=== PATIENT | male | born 1955 | race Caucasian/White ===

== ENCOUNTER 2020-04-29 09:33 | Outpatient (CLI) | payer BC, SELFPAY ==
[2020-04-29 10:05] LABS: Alanine Aminotransferase 34 U/L (4-50); Albumin Level 4.3 g/dL (3.5-5.1); Alkaline Phosphatase 87 U/L (38-126); Anion Gap 4 mmol/L (8-16); Aspartate Amino Transferase 31 U/L (17-59); Bilirubin,Total 0.6 mg/dL (0.2-1.3); Blood Urea Nitrogen 20 mg/dL (9-20); Calcium 9.1 mg/dL (8.4-10.2); Carbon Dioxide 28 mmol/L (22-30); Chloride 106 mmol/L (98-107); Cholesterol 220 mg/dL (0-200); Estimated Glomerular Filt Rate > 60; Glucose 94 mg/dL (75-110); HDL Direct 40 mg/dL; Potassium 4.2 mmol/L (3.4-5.0); Sodium 138 mmol/L (137-145); Triglycerides 232 mg/dL (<150)
[2020-04-29 10:16] LABS: LDL Cholesterol Direct 139 mg/dL
[2020-04-29 10:34] LABS: Prostate Specific Antigen 0.8 ng/mL (< OR = 4.0)
== END 2020-04-29 09:34 | disposition home or self-care (01) ==
PROVIDERS: PCP Emergency Medicine; Visit Provider Emergency Medicine
DX: E78.5 Hyperlipidemia, unspecified (principal); Z12.5 Encounter for screening for malignant neoplasm of prostate
CPT/HCPCS: 36415; 80053; 80061; 84153

== ENCOUNTER 2020-10-14 13:02 | Outpatient (CLI) | payer MEDICARE, SELFPAY | END 2020-10-14 13:03 | disposition home or self-care (01) | LOC: ANHCOVIDVC 13:02 | PROVIDERS: PCP Emergency Medicine | DX: Z23 Encounter for immunization (principal) | CPT/HCPCS: 0001A; 91300 ==

== ENCOUNTER 2020-10-28 10:56 | Outpatient (CLI) | payer MEDICARE, SELFPAY ==
[2020-10-28 11:39] LABS: Alanine Aminotransferase 41 U/L (4-50); Albumin Level 4.2 g/dL (3.5-5.1); Alkaline Phosphatase 84 U/L (38-126); Anion Gap 5 mmol/L (8-16); Aspartate Amino Transferase 35 U/L (17-59); Bilirubin,Total 0.5 mg/dL (0.2-1.3); Blood Urea Nitrogen 19 mg/dL (9-20); Carbon Dioxide 30 mmol/L (22-30); Chloride 104 mmol/L (98-107); Cholesterol 232 mg/dL (0-200); Estimated Glomerular Filt Rate > 60; Glucose 90 mg/dL (75-110); HDL Direct 46 mg/dL; Potassium 4.3 mmol/L (3.4-5.0); Sodium 139 mmol/L (137-145); Triglycerides 199 mg/dL (<150)
[2020-10-28 11:49] LABS: LDL Cholesterol Direct 144 mg/dL
== END 2020-10-28 10:57 | disposition home or self-care (01) ==
LOC: ANHLAB 11:01
PROVIDERS: PCP Emergency Medicine; Visit Provider Emergency Medicine
DX: E78.5 Hyperlipidemia, unspecified (principal)
CPT/HCPCS: 36415; 80053; 80061

== ENCOUNTER 2020-11-04 09:33 | Outpatient (CLI) | payer MEDICARE, SELFPAY | END 2020-11-04 09:34 | disposition home or self-care (01) | LOC: ANHCOVIDVC 09:33 | PROVIDERS: PCP Emergency Medicine | DX: Z23 Encounter for immunization (principal) | CPT/HCPCS: 0002A; 91300 ==

== ENCOUNTER 2020-11-06 13:37 | Outpatient (CLI) | payer MEDICARE, SELFPAY ==
--- NOTE | ~2020-11-06 | XR_ITS ---
EXAMINATION: XR hip RT min 2V DATE: 11/06/2020 13:52 INDICATION: Right hip pain. TECHNIQUE: 2 views of right hip were obtained. COMPARISON: CT abdomen and pelvis 04/04/2014 FINDINGS: Bone alignment is normal. No fracture. There is chronic flattening of superior aspect of he ad of right femur, consistent with osteonecrosis. There is moderate right hip osteoarthritis. There i s mild lumbar spondylosis. IMPRESSION: 1. Chronic flattening of superior aspect of head of right femur, consistent with osteonecrosis. 2. Moderate right hip osteoarthritis. Reviewed, dictated and finalized at location A. IMPRESSION: 1. Chronic flattening of superior aspect of head of right femur, consistent wit h osteonecrosis. 2. Moderate right hip osteoarthritis.
== END 2020-11-06 13:38 | disposition home or self-care (01) ==
LOC: ANHIMG 13:40
PROVIDERS: PCP Emergency Medicine; Visit Provider Emergency Medicine
DX: M25.559 Pain in unspecified hip (principal); M16.11 Unilateral primary osteoarthritis, right hip; M89.9 Disorder of bone, unspecified
CPT/HCPCS: 73502

== ENCOUNTER 2021-04-27 11:53 | Outpatient (CLI) | payer MEDICARE, SELFPAY ==
[2021-04-27 12:21] LABS: Alanine Aminotransferase 44 U/L (4-50); Albumin Level 4.4 g/dL (3.5-5.1); Alkaline Phosphatase 83 U/L (38-126); Anion Gap 7 mmol/L (8-16); Aspartate Amino Transferase 37 U/L (17-59); Bilirubin,Total 0.6 mg/dL (0.2-1.3); Blood Urea Nitrogen 20 mg/dL (9-20); Carbon Dioxide 29 mmol/L (22-30); Chloride 103 mmol/L (98-107); Cholesterol 210 mg/dL (0-200); Estimated Glomerular Filt Rate > 60; Glucose 91 mg/dL (65-110); HDL Direct 41 mg/dL; Potassium 4.3 mmol/L (3.4-5.0); Sodium 139 mmol/L (137-145); Triglycerides 241 mg/dL (<150)
[2021-04-27 12:32] LABS: LDL Cholesterol Direct 114 mg/dL
== END 2021-04-27 11:54 | disposition home or self-care (01) ==
LOC: ANHLAB 11:55
PROVIDERS: PCP Emergency Medicine; Visit Provider Emergency Medicine
DX: E78.2 Mixed hyperlipidemia (principal); I10 Essential (primary) hypertension
CPT/HCPCS: 36415; 80053; 80061

== ENCOUNTER 2021-05-08 12:27 | Outpatient (CLI) | payer MEDICARE, SELFPAY ==
[2021-05-08 15:52] LABS: Prostate Specific Antigen 0.7 ng/mL (< OR = 4.0)
== END 2021-05-08 12:28 | disposition home or self-care (01) ==
PROVIDERS: PCP Emergency Medicine; Visit Provider Emergency Medicine
DX: Z12.5 Encounter for screening for malignant neoplasm of prostate (principal)
CPT/HCPCS: 36415; 84153; G0103

== ENCOUNTER 2021-10-29 09:42 | Outpatient (CLI) | payer MEDICARE, SELFPAY ==
[2021-10-29 10:19] LABS: Alanine Aminotransferase 61 U/L (4-50); Albumin Level 4.4 g/dL (3.5-5.1); Alkaline Phosphatase 90 U/L (38-126); Anion Gap 6 mmol/L (8-16); Aspartate Amino Transferase 44 U/L (17-59); Bilirubin,Total 0.6 mg/dL (0.2-1.3); Blood Urea Nitrogen 21 mg/dL (9-20); Calcium 8.7 mg/dL (8.4-10.2); Carbon Dioxide 29 mmol/L (22-30); Chloride 103 mmol/L (98-107); Cholesterol 239 mg/dL (0-200); Estimated Glomerular Filt Rate 55; Glucose 96 mg/dL (65-110); HDL Direct 37 mg/dL; Potassium 4.4 mmol/L (3.4-5.0); Sodium 138 mmol/L (137-145); Triglycerides 265 mg/dL (<150)
[2021-10-29 10:30] LABS: LDL Cholesterol Direct 149 mg/dL
== END 2021-10-29 09:43 | disposition home or self-care (01) ==
PROVIDERS: PCP Emergency Medicine; Visit Provider Emergency Medicine
DX: E78.2 Mixed hyperlipidemia (principal)
CPT/HCPCS: 36415; 80053; 80061

== ENCOUNTER 2021-11-09 15:11 | Outpatient (CLI) | payer MEDICARE, SELFPAY ==
--- NOTE | ~2021-11-09 | CT_ITS ---
EXAMINATION: CT lung screening DATE: 11/09/2021 15:30 INDICATION: Former Smoker TECHNIQUE: Computed tomography (CT) of the chest was performed without intravenous contrast. Addition al 3D reconstructions utilizing coronal maximum intensity projection (MIP) were performed. Automated exposure control and iterative reconstruction technique were employed. The dose-length product was 19 9.18 mGy-cm. COMPARISON: 04/03/2014 FINDINGS: Mild emphysema. Unchanged 4 mm groundglass nodule at the posterior right apex. No other suspicious pu lmonary nodules, or pneumonia, pulmonary edema or pleural effusion. Heart size is normal. Atheroscler otic coronary artery calcific location. No pericardial effusion. Aortic valve calcification. Thoracic aorta is normal in caliber. No pathologically enlarged thoracic lymphadenopathy. Diffuse hepatic drea atosis with focal sparing along the gallbladder fossa. There are also multiple well-defined low-atten uation hepatic cysts measuring up to 4.3 cm. Gallbladder is not visualized and likely surgically abse nt. The left adrenal gland has also been resected with surgical clip at the adrenal fossa. Partially visualized at least 1.8 cm cyst at the upper pole of the right kidney. Chronic minimal to mild anteri or wedging of a few mid to lower thoracic vertebral bodies. IMPRESSION: 1. Lung-RADS category 2: Benign appearance or behavior. Continue annual screening with noncontrast lo w-dose chest CT in 12 months. 2. Mild emphysema. Reviewed, dictated and finalized at location B. IMPRESSION: 1. Lung-RADS category 2: Benign appearance or behavior. Continue annual screeni ng with noncontrast low-dose chest CT in 12 months. 2. Mild emphysema.
== END 2021-11-09 15:12 | disposition home or self-care (01) ==
PROVIDERS: PCP Emergency Medicine; Visit Provider Emergency Medicine
DX: Z12.2 Encounter for screening for malignant neoplasm of respiratory organs (principal); Z87.891 Personal history of nicotine dependence; J43.9 Emphysema, unspecified
CPT/HCPCS: 71271

== ENCOUNTER 2021-12-27 01:20 | Day surgery (SDC) | payer MEDICARE, SELFPAY ==
--- NOTE | 2021-12-27 07:50 | P.PNAN_ITS ---
Anes - Initial Pre Proc Eval Procedure: Operation Date: 12/27/21 13:00 Proposed Procedures p Screening Colonoscopy - Jean Singh MD Date/Time: 12/27/21 07:50 Surgeon: Jean Singh MD Pre Op Diagnosis: hx of colon polyps Patient Data Age: 66 Gender: M Height: Weight: 99 kg Allergies Allergy/AdvReac Type Severity Reaction Status Date / Time No Known Allergies Allergy Verified 12/27/21 10:34 Home Medications Medication Instructions Recorded Confirmed Type fenofibrate nanocrystallized 48 mg See Rx Instructions .ROUTE 06/25/21 12/14/21 Rx tablet .COMPLEX #90 tablet prazosin 1 mg capsule See Rx Instructions .ROUTE 06/25/21 12/14/21 Rx .COMPLEX #180 cap losartan 100 mg tablet 100 mg PO DAILY #90 tablet 10/04/21 12/14/21 Rx naproxen See Rx Instructions .ROUTE 12/14/21 12/14/21 History .COMPLEX PRN amlodipine 5 mg PO DAILY 12/23/21 12/23/21 History Patient hx anesthesia problems: none Family hx anesthesia problems: none Results Review: All pre-operative results and documents have been reviewed as part of the pre-operative evaluation. [facility] Past Medical History Medical History (Updated 12/27/21 @ 07:50 by Pérez Reeves DO) HLD (hyperlipidemia) Hypertension Surgical History Surgical History (Updated 12/27/21 @ 07:50 by Pérez Reeves DO) History of appendectomy Family History Family History Other Diabetes mellitus Heart disease High cholesterol Hypertension Social History Social History Smoking packs per day: 1.5 Smoking cigarettes per day: 30.0 Years smoked: 30 Smoking pack-years: 45.00 Smoking status: Former smoker Tobacco type: cigarettes Smoking end date: 08/07/14 Alcohol intake: current Alcohol use details: 2 drinks/year Substance use: never Living arrangements: with family Gender identity (if verbalized by the patient): Male Spiritual care concerns: No Anes - Eval Final PreProcedure Day of Procedure 12/27/21 07:50 Patient weight: normal Heart: regular rate and rhythm Lungs: clear to auscultation and normal air movement Airway: Mallampati scale class II Neurological: alert and oriented Last oral intake: >/= 8 hours ASA classification: III Emergent: no Anesthetic plan: proceed Anesthesia type and monitoring: general GIVS and standard monitoring Results Review: All pre-operative results and documents have been reviewed as part of the pre-operative evaluation. Informed Consent: The patient's anesthetic plan and its attendant risks and benefits were discussed with the patient/family/POA. Questions were solicited and answers provided to the satisfaction of the patient/family/POA.
[2021-12-27 10:35] VITALS: BP 124/96; PULSE 50; TEMP 36.2; O2SAT 97
[2021-12-27] MEDS: LACTATED RINGERS 1,000 ML 150 ML IV CONT (10:53)
--- NOTE | 2021-12-27 11:08 | PM.HPGS ---
History of Present Illness History of Present Illness Consent: Risks, benefits, and alternatives have been discussed and questions answered. Patient agrees to proceed with procedure. Chief complaint: hx of colon polyps Narrative: Brody Briones is a 66 year old male with colon polyp in 2017 Review of Systems Constitutional: Constitutional: Denies headache(s) and Denies weakness Eyes: Eyes: Denies blurry vision ENT: Reports Normal hearing present, Denies headache(s) and Denies neck pain Cardiovascular: Cardiovascular: Denies chest pain and Denies dyspnea Respiratory: Respiratory: Denies dyspnea Gastrointestinal: Gastrointestinal: Reports no additional gastrointestinal complaints Genitourinary: Genitourinary: Denies dysuria Musculoskeletal: Musculoskeletal: Denies neck pain Integumentary/Breasts: Skin/Breast: Denies dry skin Neurologic: Reports Normal hearing present, Denies headache(s) and Denies weakness Psychiatric: Psychiatric: Denies anxiety Endocrine: Endocrine: Denies change in body appearance Hematologic/Lymphatic: Hematologic/Lymphatic: Denies easy bleeding Allergic/Immunologic: Allergic/Immunologic: Denies urticaria PMFSH Past Medical History Medical History (Updated 12/27/21 @ 07:50 by Pérez Reeves DO) HLD (hyperlipidemia) Hypertension Surgical History Surgical History (Updated 12/27/21 @ 07:50 by Pérez Reeves DO) History of appendectomy Family History Family History Other Diabetes mellitus Heart disease High cholesterol Hypertension Social History Social History Smoking packs per day: 1.5 Smoking cigarettes per day: 30.0 Years smoked: 30 Smoking pack-years: 45.00 Smoking status: Former smoker Tobacco type: cigarettes Smoking end date: 08/07/14 Alcohol intake: current Alcohol use details: 2 drinks/year Substance use: never Living arrangements: with family Gender identity (if verbalized by the patient): Male Spiritual care concerns: No Meds Home Medications and Allergies Home Medications Medication Instructions Recorded Confirmed Type fenofibrate nanocrystallized 48 mg See Rx Instructions .ROUTE 06/25/21 12/14/21 Rx tablet .COMPLEX #90 tablet prazosin 1 mg capsule See Rx Instructions .ROUTE 06/25/21 12/14/21 Rx .COMPLEX #180 cap losartan 100 mg tablet 100 mg PO DAILY #90 tablet 10/04/21 12/14/21 Rx naproxen See Rx Instructions .ROUTE 12/14/21 12/14/21 History .COMPLEX PRN amlodipine 5 mg PO DAILY 12/23/21 12/23/21 History Allergies Allergy/AdvReac Type Severity Reaction Status Date / Time No Known Allergies Allergy Verified 12/27/21 10:34 Vital Signs Vital Signs - 24 hr 12/27/21 10:35 Temperature 97.1 F L Pulse Rate 50 L Blood Pressure 124/96 H Pulse Oximetry 97 Exam Const: General: comfortable and no acute distress HENMT: General nose exam: Normal nares present Eyes: General: appearance normal, both eyes and all related structures Neck: Neck: no JVD Resp: Auscultation: clear to auscultation bilaterally Cardio: Rate: regular rate Rhythm: regular rhythm GI: Inspection: non-distended GI Palp: Yes Soft to palpation Skin: General skin exam: normal color Neuro: General: gait normal Speech: normal speech Extrem: General: normal to inspection Psych: Mental Status: mental status grossly normal Assessment and Plan Assessment and plan (1) Colon cancer screening: Code(s): Z12.11 - Encounter for screening for malignant neoplasm of colon Status: Acute Assessment and Plan: colonoscopy
[2021-12-27 11:24] VITALS: BP 99/60; PULSE 79; RESP 16; O2SAT 95
[2021-12-27 11:34] VITALS: BP 106/76; PULSE 73; RESP 16; O2SAT 92
[2021-12-27 11:44] VITALS: BP 124/88; PULSE 77; RESP 16; O2SAT 94
== END 2021-12-27 11:56 | disposition home or self-care (01) ==
PROVIDERS: PCP Emergency Medicine; Visit Provider Internal Medicine Gastroenterology
PROC: 0DJD8ZZ Inspection of Lower Intestinal Tract, Via Natural or Artificial Opening Endoscopic (ICD-10-PCS; CPT 45378; principal; 2021-12-27 13:00)
DX: Z12.11 Encounter for screening for malignant neoplasm of colon (principal); D12.0 Benign neoplasm of cecum; K57.30 Diverticulosis of large intestine without perforation or abscess without bleeding; I10 Essential (primary) hypertension; E78.5 Hyperlipidemia, unspecified; Z87.891 Personal history of nicotine dependence
CPT/HCPCS: 45380; 88305; J7120

== ENCOUNTER 2022-05-07 09:23 | Outpatient (CLI) | payer MEDICARE, SELFPAY ==
[2022-05-07 09:53] LABS: Cholesterol 215 mg/dL (0-200); HDL Direct 41 mg/dL; Triglycerides 199 mg/dL (<150)
[2022-05-07 10:04] LABS: LDL Cholesterol Direct 144 mg/dL
== END 2022-05-07 09:24 | disposition home or self-care (01) ==
LOC: ANHLAB 09:27
PROVIDERS: PCP Emergency Medicine; Visit Provider Emergency Medicine
DX: E78.2 Mixed hyperlipidemia (principal)
CPT/HCPCS: 36415; 80061

== ENCOUNTER 2022-05-14 09:55 | Outpatient (CLI) | payer MEDICARE, SELFPAY ==
[2022-05-14 11:04] LABS: Prostate Specific Antigen 0.8 ng/mL (< OR = 4.0)
== END 2022-05-14 09:56 | disposition home or self-care (01) ==
PROVIDERS: PCP Emergency Medicine; Visit Provider Emergency Medicine
DX: Z12.5 Encounter for screening for malignant neoplasm of prostate (principal)
CPT/HCPCS: 36415; 84153; G0103

== ENCOUNTER 2022-11-04 10:42 | Outpatient (CLI) | payer MEDICARE, SELFPAY ==
[2022-11-04 11:19] LABS: Alanine Aminotransferase 39 U/L (6-50); Albumin Level 4.2 g/dL (3.5-5.1); Alkaline Phosphatase 86 U/L (38-126); Anion Gap 4 mmol/L (8-16); Aspartate Amino Transferase 33 U/L (17-59); Bilirubin,Total 0.8 mg/dL (0.2-1.3); Blood Urea Nitrogen 23 mg/dL (9-20); Calcium 8.6 mg/dL (8.4-10.2); Carbon Dioxide 30 mmol/L (22-30); Chloride 102 mmol/L (98-107); Cholesterol 216 mg/dL (0-200); Estimated Glomerular Filt Rate 51; Glucose 97 mg/dL (65-110); HDL Direct 38 mg/dL; Potassium 4.3 mmol/L (3.4-5.0); Sodium 136 mmol/L (137-145); Triglycerides 178 mg/dL (<150)
[2022-11-04 11:30] LABS: LDL Cholesterol Direct 141 mg/dL
== END 2022-11-04 10:43 | disposition home or self-care (01) ==
PROVIDERS: PCP Emergency Medicine; Visit Provider Emergency Medicine
DX: E78.5 Hyperlipidemia, unspecified (principal)
CPT/HCPCS: 36415; 80053; 80061

== ENCOUNTER 2023-05-09 09:30 | Outpatient (CLI) | payer MEDICARE, SELFPAY ==
[2023-05-09 10:26] LABS: Alanine Aminotransferase 51 U/L (6-50); Albumin Level 4.2 g/dL (3.5-5.1); Alkaline Phosphatase 82 U/L (38-126); Anion Gap 7 mmol/L (8-16); Aspartate Amino Transferase 39 U/L (17-59); Bilirubin,Total 0.6 mg/dL (0.2-1.3); Blood Urea Nitrogen 24 mg/dL (9-20); Calcium 8.7 mg/dL (8.4-10.2); Carbon Dioxide 30 mmol/L (22-30); Chloride 101 mmol/L (98-107); Cholesterol 225 mg/dL (0-200); Estimated Glomerular Filt Rate 60; Glucose 92 mg/dL (65-110); HDL Direct 44 mg/dL; Potassium 4.4 mmol/L (3.4-5.0); Sodium 138 mmol/L (137-145); Triglycerides 281 mg/dL (<150)
[2023-05-09 10:43] LABS: LDL Cholesterol Direct 128 mg/dL
[2023-05-12 22:59] LABS: Vitamin D 1,25 (OH)2 Total 39 pg/mL (18-72); Vitamin D2 1,25 (OH)2 <8 pg/mL; Vitamin D3 1,25 (OH)2 39 pg/mL
== END 2023-05-09 09:31 | disposition home or self-care (01) ==
PROVIDERS: PCP Emergency Medicine; Visit Provider Emergency Medicine
DX: E78.5 Hyperlipidemia, unspecified (principal); I10 Essential (primary) hypertension; E55.9 Vitamin D deficiency, unspecified
CPT/HCPCS: 36415; 80053; 80061; 82652

== ENCOUNTER 2023-06-05 11:39 | Outpatient (CLI) | payer MEDICARE, SELFPAY ==
[2023-06-05 13:07] LABS: Prostate Specific Antigen 0.8 ng/mL (< OR = 4.0)
== END 2023-06-05 11:40 | disposition home or self-care (01) ==
PROVIDERS: PCP Emergency Medicine; Visit Provider Emergency Medicine
DX: Z12.5 Encounter for screening for malignant neoplasm of prostate (principal)
CPT/HCPCS: 36415; 84153; G0103

== ENCOUNTER 2023-11-09 09:40 | Outpatient (CLI) | payer MEDICARE, SELFPAY ==
[2023-11-09 11:03] LABS: Alanine Aminotransferase 43 U/L (6-50); Albumin Level 4.5 g/dL (3.5-5.1); Alkaline Phosphatase 86 U/L (38-126); Anion Gap 4 mmol/L (4-12); Aspartate Amino Transferase 38 U/L (17-59); Bilirubin,Total 0.6 mg/dL (0.2-1.3); Blood Urea Nitrogen 27 mg/dL (9-20); Calcium 9.7 mg/dL (8.4-10.2); Carbon Dioxide 31 mmol/L (22-30); Chloride 103 mmol/L (98-107); Cholesterol 225 mg/dL (0-200); Estimated Glomerular Filt Rate 50; Glucose 100 mg/dL (65-110); HDL Direct 39 mg/dL; Potassium 4.4 mmol/L (3.4-5.0); Sodium 138 mmol/L (137-145); Triglycerides 247 mg/dL (<150)
[2023-11-09 11:27] LABS: Vitamin D 25 Hydroxy 29.7 ng/mL
[2023-11-09 21:17] LABS: LDL Cholesterol Direct 149 mg/dL
== END 2023-11-09 09:41 | disposition home or self-care (01) ==
PROVIDERS: PCP Emergency Medicine; Visit Provider Emergency Medicine
DX: E78.2 Mixed hyperlipidemia (principal); E55.9 Vitamin D deficiency, unspecified
CPT/HCPCS: 36415; 80053; 80061; 82306

== ENCOUNTER 2024-05-07 09:46 | Outpatient (CLI) | payer MEDICARE, SELFPAY ==
[2024-05-07 10:58] LABS: Alanine Aminotransferase 38 U/L (6-50); Albumin Level 4.4 g/dL (3.5-5.1); Alkaline Phosphatase 76 U/L (38-126); Anion Gap 7 mmol/L (4-12); Aspartate Amino Transferase 31 U/L (17-59); Bilirubin,Total 0.6 mg/dL (0.2-1.3); Blood Urea Nitrogen 30 mg/dL (9-20); Carbon Dioxide 27 mmol/L (22-30); Chloride 104 mmol/L (98-107); Cholesterol 223 mg/dL (0-200); Estimated Glomerular Filt Rate 55; Glucose 97 mg/dL (65-110); HDL Direct 46 mg/dL; Potassium 4.3 mmol/L (3.4-5.0); Sodium 138 mmol/L (137-145); Triglycerides 190 mg/dL (<150)
[2024-05-07 11:09] LABS: LDL Cholesterol Direct 137 mg/dL
[2024-05-07 11:15] LABS: Vitamin D 25 Hydroxy 20.5 ng/mL
[2024-05-07 11:25] LABS: Prostate Specific Antigen 0.7 ng/mL (< OR = 4.0)
== END 2024-05-07 09:47 | disposition home or self-care (01) ==
PROVIDERS: PCP Emergency Medicine; Visit Provider Emergency Medicine
DX: E78.5 Hyperlipidemia, unspecified (principal); Z12.5 Encounter for screening for malignant neoplasm of prostate; E55.9 Vitamin D deficiency, unspecified
CPT/HCPCS: 36415; 80053; 80061; 82306; 84153; G0103

== ENCOUNTER 2024-11-06 10:42 | Outpatient (CLI) | payer MEDICARE, SELFPAY ==
[2024-11-06 11:19] LABS: Alanine Aminotransferase 52 U/L (6-50); Albumin Level 4.3 g/dL (3.5-5.1); Alkaline Phosphatase 77 U/L (38-126); Anion Gap 7 mmol/L (4-12); Aspartate Amino Transferase 38 U/L (17-59); Bilirubin,Total 0.8 mg/dL (0.2-1.3); Blood Urea Nitrogen 20 mg/dL (9-20); Calcium 9.1 mg/dL (8.4-10.2); Carbon Dioxide 28 mmol/L (22-30); Chloride 104 mmol/L (98-107); Cholesterol 222 mg/dL (0-200); Estimated Glomerular Filt Rate 58; Glucose 93 mg/dL (65-110); HDL Direct 40 mg/dL; Potassium 4.4 mmol/L (3.4-5.0); Sodium 139 mmol/L (137-145); Triglycerides 206 mg/dL (<150)
[2024-11-06 11:30] LABS: LDL Cholesterol Direct 141 mg/dL
[2024-11-06 16:47] LABS: Vitamin D 25 Hydroxy 20.8 ng/mL
== END 2024-11-06 10:43 | disposition home or self-care (01) ==
LOC: ANHLAB 10:44
PROVIDERS: PCP Emergency Medicine; Visit Provider Emergency Medicine
DX: I10 Essential (primary) hypertension (principal); E78.2 Mixed hyperlipidemia; E55.9 Vitamin D deficiency, unspecified
CPT/HCPCS: 36415; 80053; 80061; 82306

== ENCOUNTER 2025-05-10 08:41 | Outpatient (CLI) | payer MEDICARE, SELFPAY ==
[2025-05-10 09:44] LABS: Alanine Aminotransferase 31 U/L (6-50); Albumin Level 4.1 g/dL (3.5-5.1); Alkaline Phosphatase 89 U/L (38-126); Anion Gap 6 mmol/L (4-12); Aspartate Amino Transferase 34 U/L (17-59); Bilirubin,Total 0.5 mg/dL (0.2-1.3); Blood Urea Nitrogen 19 mg/dL (9-20); Calcium 9.0 mg/dL (8.4-10.2); Carbon Dioxide 29 mmol/L (22-30); Chloride 102 mmol/L (98-107); Cholesterol 206 mg/dL (0-200); Estimated Glomerular Filt Rate > 60; Glucose 97 mg/dL (65-110); HDL Direct 42 mg/dL; Potassium 4.2 mmol/L (3.4-5.0); Sodium 137 mmol/L (137-145); Total Protein 7.1 g/dL (6.3-8.2); Triglycerides 162 mg/dL (<150)
[2025-05-10 10:20] LABS: Prostate Specific Antigen 1.0 ng/mL (< OR = 4.0)
== END 2025-05-10 08:42 | disposition home or self-care (01) ==
PROVIDERS: PCP Emergency Medicine; Visit Provider Emergency Medicine
DX: Z12.5 Encounter for screening for malignant neoplasm of prostate (principal); E55.9 Vitamin D deficiency, unspecified; E78.5 Hyperlipidemia, unspecified
CPT/HCPCS: 36415; 80053; 80061; 82306; 84153; G0103

== ENCOUNTER 2025-07-02 09:38 | Emergency (ER) | payer MEDICARE, SELFPAY ==
[2025-07-02 09:41] VITALS: BP 139/113; PULSE 99; RESP 16; TEMP 36.5; O2SAT 95
== END 2025-07-02 11:20 | disposition left against medical advice (07) ==
LOC: ANHED 11:17
PROVIDERS: PCP Emergency Medicine
DX: R06.02 Shortness of breath (principal)
CPT/HCPCS: 99199

== ENCOUNTER 2025-07-29 09:24 | Outpatient (CLI) | payer MEDICARE, SELFPAY ==
--- NOTE | ~2025-07-29 | NM_ITS ---
EXAMINATION: NM mariana stress w perfusion DATE: 07/29/2025 12:11 INDICATION: Other forms of dyspnea TECHNIQUE: Rest images were obtained following intravenous administration of 12.2 mCi Tc99m tetrofosmin (Myoview). The patient was infused intravenously with Lexiscan (Regadenoson). Then, 32.3 mCi Tc99m tetrofosmin (Myoview) was administered intravenously, and stress images were obtained. Data was sruthi nstructed into short axis and horizontal and vertical long axis SPECT images. Gated SPECT images were also obtained. COMPARISON: None. FINDINGS: Large severe nonreversible perfusion defect consistent with infarct involving the mid inferior, mid inferolateral, basilar inferior and basilar inferolateral segments as well as small portion of the apical inferior and mid anterolateral segments. No definitive reversible ischemia. Moderate left ventricular enlargement with calculated end-diastolic volume of 325 mL. There is global hypokinesis with akinesis along the inferior wall. Moderately decreased left ventricular ejection fraction measures 26%. IMPRESSION: 1. Large severe infarct involving a significant portion of the circumflex coronary artery vascular distribution as well as portions of the right coronary artery vascular distribution along the inferior wall. 2. Moderate left ventricular enlargement with moderately decreased ejection fraction measuring 26%. Reviewed, dictated and finalized at location A. BURNER IMPRESSION: 1. Large severe infarct involving a significant portion of the circumflex coron filomena artery vascular distribution as well as portions of the right coronary carlos alberto ry vascular distribution along the inferior wall. 2. Moderate left ventricular enlargement with moderately decreased ejection fra ction measuring 26%.
--- NOTE | 2025-07-29 09:38 | EST_ITS ---
Patient Info Name: Brody Briones Age: 69 years : 1955 Gender: Male Ht: 68 in Wt: 220 lbs BSA: 2.22 m2 HR: 80 bpm BP: 135 / 98 mmHg Exam Date: 07/29/2025 9:38 AM Patient Status: O Admit Date: 07/29/2025 Exam Type: CA stress mariana w NM A regadenoson stress test was performed. Staff Referring Physician: Raul Lira MD Attending Provider: Raul Lira MD Exercise Technologist: Tamanna Alejandro Exercise Physician: Napoleon Joyner DO Summary 1. 1. Negative lexiscan stress test for ischemic ST changes by ECG criteria. 2. 2. Stable hemodynamics throughout the test. 3. 3. Nuclear scan to follow and will be reported separately. Please correlate with it. 4. 4. Patient informed of the above results. Protocol: Lexiscan Stress ECG Details Stage: REST Duration (min): 1 min : 19 sec HR (bpm): 74 SBP (mmHg): 135 DBP (mmHg): 98 Stage: REST Duration (min): 1 min : 45 sec HR (bpm): 73 SBP (mmHg): 135 DBP (mmHg): 98 Stage: REST Duration (min): 5 min : 18 sec HR (bpm): 74 SBP (mmHg): 135 DBP (mmHg): 98 Stage: STAGE 1 Duration (min): 1 min : 0 sec HR (bpm): 85 SBP (mmHg): 131 DBP (mmHg): 94 Stage: RECOVERY Duration (min): 1 min : 0 sec HR (bpm): 100 SBP (mmHg): 131 DBP (mmHg): 94 Stage: RECOVERY Duration (min): 2 min : 0 sec HR (bpm): 91 SBP (mmHg): 131 DBP (mmHg): 94 Stage: RECOVERY Duration (min): 3 min : 0 sec HR (bpm): 87 SBP (mmHg): 117 DBP (mmHg): 89 Stage: RECOVERY Duration (min): 3 min : 29 sec HR (bpm): 86 SBP (mmHg): 117 DBP (mmHg): 89 Rest HR: 74 bpm Peak HR: 104 bpm Rest Sys BP: 135 mmHg Peak Sys BP: 131 mmHg Max Pred HR: 151 bpm % Max Pred HR: 69 % Target HR: 128 bpm Max RPP: 13,624 bpm*mmHg Termination Reason: Completed protocol Cardiac Symptoms: Shortness of breath Total Time: 1 min : 0 sec Rest Cohn BP: 98 mmHg Peak Cohn BP: 94 mmHg Total Dose: 0.4 mg Resting ECG Sinus rhythm. Stress ECG No ST changes. Arrhythmias None. Report Signatures
== END 2025-07-29 09:25 | disposition home or self-care (01) ==
PROVIDERS: PCP Emergency Medicine; Visit Provider Emergency Medicine
DX: I21.21 ST elevation (STEMI) myocardial infarction involving left circumflex coronary artery (principal); I21.11 ST elevation (STEMI) myocardial infarction involving right coronary artery; R06.09 Other forms of dyspnea; R10.11 Right upper quadrant pain
CPT/HCPCS: 78452; 93017; A9502; J2785

== ENCOUNTER 2025-07-29 17:33 | Inpatient (IN) | payer MEDICARE, SELFPAY ==
--- NOTE | ~2025-07-29 | XR_ITS ---
XR chest 2V 07/29/2025 18:02 Indication: Abnormal stress test Procedure: 2 view chest Comparison: 04/02/2014 Findings: Cardiomegaly. There is atherosclerosis and ectasia of the aorta. No focal air space disease, pulmonary edema, pleural effusion or suspected pneumothorax. No acute osseous abnormality. Impression: 1: No acute cardiopulmonary disease. Reviewed, dictated and finalized at location O. L ASSEMBLER Impression: 1: No acute cardiopulmonary disease.
[2025-07-29 17:35] VITALS: BP 155/89; PULSE 98; RESP 16; TEMP 36.7; O2SAT 95
--- NOTE | 2025-07-29 17:48 | ECG_ITS ---
Test Date: 2025-07-29 17:54:15 Measurements Intervals [place] Rate: 85 P: 131 MI: 187 QRS: -37 QRSD: 169 T: 149 QT: 424 QTc: 506 Interpretive Statements SINUS RHYTHM LEFT AXIS DEVIATION LEFT ATRIAL ENLARGEMENT IVCD, FEATURES OF RBBB, LBBB ABNORMAL ECG No previous ECG available for comparison Electronically Signed On 07-29-2025 20:55:45 [employer]ER[employer] COORDINATOR by Napoleon Joyner D.O.
--- NOTE | 2025-07-29 17:59 | PC.NURSE ---
pt to XR at this time
[2025-07-29 18:06] LABS: Hematocrit 49.9 % (42.0-52.0); Hemoglobin 16.2 g/dL (14.0-18.0); Immature Granulocyte Percent A 0.2 % (0-0.5); Lymphocytes Absolute Auto 1.69 K/mm3 (0.9-3.2); Mean Corpuscular HGB Conc 32.5 g/dl (32-36); Mean Corpuscular Hemoglobin 30.6 pg (26-34); Mean Corpuscular Volume 94.2 fl (80-100); Nucleated Red Blood Cells Absolute Auto 0.000 K/mm3 (0.0-0.012); Nucleated Red Blood Cells Perc 0.0 % (0.0-0.2); Platelet Count Result 212 k/mm3 (150-375); Red Blood Count 5.30 M/mm3 (4.6-6.20); White Blood Count 9.7 K/mm3 (4.5-10.0)
[2025-07-29 18:16] LABS: Alanine Aminotransferase 36 U/L (6-50); Albumin Level 4.4 g/dL (3.5-5.1); Alkaline Phosphatase 78 U/L (38-126); Anion Gap 6 mmol/L (4-12); Aspartate Amino Transferase 38 U/L (17-59); Bilirubin,Total 0.5 mg/dL (0.2-1.3); Blood Urea Nitrogen 32 mg/dL (9-20); Calcium 9.3 mg/dL (8.4-10.2); Carbon Dioxide 27 mmol/L (22-30); Chloride 107 mmol/L (98-107); Estimated CRCL calculation 56 ml/min; Estimated Glomerular Filt Rate 55; Glucose 113 mg/dL (65-110); Lipase 71 U/L (23-300); Potassium 4.3 mmol/L (3.4-5.0); Sodium 140 mmol/L (137-145); Total Protein 7.6 g/dL (6.3-8.2)
[2025-07-29 18:17] LABS: INR 1.0; Prothrombin Time 12.7 Seconds (11.1-14.7)
[2025-07-29 18:18] LABS: Partial Thromboplastin Time 28.2 Seconds (22.3-36.8)
[2025-07-29 18:28] LABS: Troponin I 0.120 ng/mL (0.000-0.034)
--- NOTE | 2025-07-29 19:26 | ED.GENADULT ---
HPI - General Adult General Chief complaint: Recheck/Abnormal Lab/Rx Stated complaint: chemical stress test this AM, abnormal test Time Seen by Provider: 07/29/25 19:17 History of Present Illness HPI narrative: Patient is 69-year-old gentleman presents emergency department chief complaint of positive stress test. Patient reports that he has recently been having dyspnea on exertion and reports that he has had some discomfort in his chest patient states currently is not having any pain patient reports primary doctor set him up for a stress test today and he was called around 5:00 p.m. and told that his stress test was positive Related Data Allergies Allergy/AdvReac Type Severity Reaction Status Date / Time No Known Allergies Allergy Verified 07/29/25 17:37 Review of Systems Review of Systems: A 10 system review of systems was completed on the patient and is negative except for what is stated in the HPI. Nursing and ancillary documentation was reviewed. [facility] Past Medical History Medical History Bronchitis Right sided sciatica Vitamin D deficiency Testicular hypofunction Other fatigue Male erectile dysfunction, unspecified Erectile dysfunction due to arterial insufficiency Anxiety disorder, unspecified Abnormal PSA Hypertension HLD (hyperlipidemia) Surgical History Surgical History History of appendectomy Family History Family History Other Diabetes mellitus Heart disease High cholesterol Hypertension Social History Social History Smoking packs per day: 1.5 Smoking cigarettes per day: 30.0 Years smoked: 30 Smoking pack-years: 45.00 Smoking status: Current every day smoker Tobacco type: cigarettes Alcohol intake: current Alcohol use details: rarely Substance use: never Substance use type: does not use Lack of Transportation: No Lack of Food: Never True Current Housing: I Have Housing Concerned About Future Housing: No Difficulty Paying Gas/Electric Bills: No Difficulty Paying for Meds: No Currently Unemployed: No Education: High School Diploma/GED Difficulty w/ Childcare or Family Care: No Living arrangements: with family Gender identity (if verbalized by the patient): Male Spiritual care concerns: No Exam Narrative: GENERAL: Well-appearing, well-nourished, and in no acute distress. HEAD: Normocephalic, atraumatic. EYES: PERRLA and EOMI. ENT: Nares clear, no rhinorrhea or epistaxis. Mucous membranes moist. NECK: Supple. CHEST: Clear to auscultation. No respiratory distress. HEART: Regular rate and rhythm. No murmur heard. Normal peripheral pulses. ABDOMEN: Soft, nontender, nondistended, normal active bowel sounds. EXTREMITIES: Normal range of motion. No edema. SKIN: Warm, dry, no rash. NEURO: No focal deficits. Alert and oriented x3. PSYCH: Normal mood and affect. Course Vital Signs Vital signs: Vital Signs Temperature 36.7 C 07/29/25 17:35 Pulse Rate 98 07/29/25 17:35 Respiratory Rate 16 07/29/25 17:35 Blood Pressure 155/89 H 07/29/25 17:35 Pulse Oximetry 95 07/29/25 17:35 Oxygen Delivery Room Air 07/29/25 17:35 Temperature 36.7 C 07/29/25 17:35 Pulse Rate 98 07/29/25 17:35 Respiratory Rate 16 07/29/25 17:35 Blood Pressure 155/89 H 07/29/25 17:35 Pulse Oximetry 95 07/29/25 17:35 Oxygen Delivery Room Air 07/29/25 17:35 MDM Differential Diagnosis Differential Diagnosis: ACS, unstable angina, stable angina, Lab Data [facility] Lab Attestation statement: I personally reviewed the patient's lab results. 07/29/25 17:57 07/29/25 17:57 Labs: Lab Results 07/29/25 Range/Units 17:57 WBC 9.7 (4.5-10.0) K/mm3 RBC 5.30 (4.6-6.20) M/mm3 Hgb 16.2 (14.0-18.0) g/dL Hct 49.9 (42.0-52.0) % MCV 94.2 (80-100) fl MCH 30.6 (26-34) pg MCHC 32.5 (32-36) g/dl RDW 13.5 (11.5-14.5) % Plt Count 212 (150-375) k/mm3 MPV 11.3 H (7.4-10.4) fl Immature Gran % (Auto) 0.2 (0-0.5) % Neut % (Auto) 72.8 (45.5-73.1) % Lymph % (Auto) 17.4 L (18.3-44.2) % Baxter % (Auto) 8.1 (2.6-8.5) % Eos % (Auto) 1.1 (0-4.4) % Baso % (Auto) 0.4 (0.2-1.2) % Lymph # (Auto) 1.69 (0.9-3.2) K/mm3 Baxter # (Auto) 0.8 H (0.1-0.6) K/mm3 Eos # (Auto) 0.1 (0-0.3) K/mm3 Baso # (Auto) 0.0 (0.0-0.1) K/mm3 Abs Immat Gran (auto) 0.02 (0.00-0.031) K/mm3 Absolute Neuts (auto) 7.1 H (1.3-6.7) K/mm3 Absolute Nucleated RBC 0.000 (0.0-0.012) K/mm3 Nucleated RBC % 0.0 (0.0-0.2) % PT 12.7 (11.1-14.7) Seconds INR 1.0 APTT 28.2 (22.3-36.8) Seconds Sodium 140 (137-145) mmol/L Potassium 4.3 (3.4-5.0) mmol/L Chloride 107 (98-107) mmol/L Carbon Dioxide 27 (22-30) mmol/L Anion Gap 6 (4-12) mmol/L BUN 32 H D (9-20) mg/dL Creatinine 1.29 (0.7-1.3) mg/dL Estim Creat Clear Calc 56 ml/min Estimated GFR 55 L (59 - ) Glucose 113 H (65-110) mg/dL Calcium 9.3 (8.4-10.2) mg/dL Total Bilirubin 0.5 (0.2-1.3) mg/dL AST 38 (17-59) U/L ALT 36 (6-50) U/L Alkaline Phosphatase 78 (38-126) U/L Troponin I 0.120 H* (0.000-0.034) ng/mL Total Protein 7.6 (6.3-8.2) g/dL Albumin 4.4 (3.5-5.1) g/dL Lipase 71 (23-300) U/L Imaging Data Radiologist's impression: ITS Impressions Chest X-Ray 07/29/25 18:03 Impression: 1: No acute cardiopulmonary disease. Discharge Plan Discharge Clinical Impression: Chest pain, Positive cardiac stress test, Elevated troponin Patient Disposition: Still a Patient Condition: Stable Patient Language: Martiniquais Prescriptions: No Action (DME) blood pressure machine See Rx Instructions .Route .MEDSUPPLY Qty: 1 0RF Rx Instructions: As directed naproxen 500 mg tablet See Rx Instructions .ROUTE .COMPLEX Qty: 60 2RF Dose Instruction: TAKE 1 TABLET BY MOUTH DAILY NEEDED FOR PAIN Rx Instructions: TAKE 1 TABLET BY MOUTH DAILY NEEDED FOR PAIN temazepam 15 mg capsule 30 mg PO QHS PRN (Reason: sleep) Qty: 30 2RF prazosin 1 mg capsule See Rx Instructions .ROUTE .COMPLEX Qty: 180 2RF Dose Instruction: TAKE 1 CAPSULE BY MOUTH TWICE DAILY Rx Instructions: TAKE 1 CAPSULE BY MOUTH TWICE DAILY amlodipine 5 mg tablet See Rx Instructions .ROUTE .COMPLEX Qty: 90 2RF Dose Instruction: TAKE 1 TABLET(5 MG) BY MOUTH EVERY DAY Rx Instructions: TAKE 1 TABLET(5 MG) BY MOUTH EVERY DAY fenofibrate nanocrystallized 48 mg tablet See Rx Instructions .ROUTE .COMPLEX Qty: 90 2RF Dose Instruction: TAKE 1 TABLET BY MOUTH DAILY Rx Instructions: TAKE 1 TABLET BY MOUTH DAILY losartan 100 mg tablet See Rx Instructions .ROUTE .COMPLEX Qty: 90 2RF Dose Instruction: TAKE 1 TABLET BY MOUTH DAILY Rx Instructions: TAKE 1 TABLET BY MOUTH DAILY fluticasone propionate 50 mcg/actuation spray,suspension See Rx Instructions .ROUTE .COMPLEX Qty: 48 2RF Dose Instruction: SHAKE LIQUID AND USE 1 SPRAY IN EACH NOSTRIL TWICE DAILY Rx Instructions: SHAKE LIQUID AND USE 1 SPRAY IN EACH NOSTRIL TWICE DAILY albuterol sulfate 90 mcg/actuation HFA aerosol inhaler See Rx Instructions .ROUTE .COMPLEX Qty: 25.5 2RF Dose Instruction: INHALE 1 PUFF BY MOUTH EVERY 4 HOURS NEEDED FOR SHORTNESS OF BREATH OR WHEEZING Rx Instructions: INHALE 1 PUFF BY MOUTH EVERY 4 HOURS NEEDED FOR SHORTNESS OF BREATH OR WHEEZING Follow-up/Referrals: Raul Lira MD [Primary Care Provider, Internal Medicine]
[2025-07-29] MEDS: ASPIRIN 81 MG CHEWABLE TABLET 324 MG PO (19:33)
--- NOTE | 2025-07-29 19:44 | PC.NURSE ---
per , okay to give pt something to drink.
[2025-07-29 21:56] LABS: Troponin I 0.138 ng/mL (0.000-0.034)
[2025-07-29 22:04] VITALS: BP 135/99; PULSE 76; RESP 18; O2SAT 99
--- NOTE | 2025-07-29 22:05 | PC.NURSE ---
[facility] notified that handoff had been completed.
--- NOTE | 2025-07-29 22:06 | WPCEDHO ---
ED Hand Off Checklist All vitals saved:yes IV Site documented:yes All med administrations documented:yes Triage Note Triage Note pt to ED for c/o being sent here 07/29/25 18:25 by his doctor. pt says he got a chemical stress test this AM and was called and told to go to the ER for seeing an abnormality on the test. 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 pt denies chest pain. pt says hes been SOB lately Allergies No Known Allergies Allergy (Verified 07/29/25 17:37) Family History (Last Reviewed 07/29/25 @ 19:27 by Dannie Quiñones MD) Other Diabetes mellitus Heart disease High cholesterol Hypertension Administered/Completed Medications Discontinued Medications Aspirin (Aspirin 81 Mg Chewable Tablet) 324 mg PO ONCE STA Stop: 07/29/25 19:29 Last Admin: 07/29/25 19:33 Dose: 324 mg Documented By: LEONARD Notes 07/29/25 19:44 Nurse Note by Linda Thao MD, okay to give pt something to drink. Initialized on 07/29/25 19:44 - END OF NOTE 07/29/25 17:59 Nurse Note by Linda Thao pt to XR at this time Initialized on 07/29/25 17:59 - END OF NOTE Interventions/Assessments General Assessment Start: 07/29/25 17:34 Freq: Status: Active Protocol: Document 07/29/25 18:25 LEONARD (Rec: 07/29/25 18:26 LEONARD [id number]) GA Cardiovascular Assessment Cardiovascular Yes Assessment WNL IV / Saline Lock, Insert Start: 07/29/25 17:48 Freq: STAT Status: Active Protocol: Document 07/29/25 17:54 KNW (Rec: 07/29/25 17:54 KNW [id number]) IV Assessment Peripheral Access Right Forearm IV Catheter Access Initiated IV Insertion Date 07/29/25 IV Insertion Time 17:54 Catheter Gauge 18 IV Insertion 1 Attempts Ultrasound Used for No Placement IV Site Assessment WNL IV Care and WNL Maintenance Last Vital Signs Temperature 98.0 F 07/29/25 17:35 Pulse Rate 76 07/29/25 22:04 Respiratory Rate 18 07/29/25 22:04 Pulse Oximetry 99 07/29/25 22:04 Blood Pressure 135/99 H 07/29/25 22:04 Blood Pressure Mean 111 07/29/25 22:04 Blood Pressure Position Sitting 07/29/25 22:04 Oxygen Delivery Room Air 07/29/25 17:35 Weight 101.8 kg 07/29/25 18:25 Last Result - Abnormals Only MPV 11.3 fl (7.4-10.4) H 07/29/25 17:57 Lymph % (Auto) 17.4 % (18.3-44.2) L 07/29/25 17:57 Mclennan # (Auto) 0.8 K/mm3 (0.1-0.6) H 07/29/25 17:57 Absolute Neuts (auto) 7.1 K/mm3 (1.3-6.7) H 07/29/25 17:57 BUN 32 mg/dL (9-20) H D 07/29/25 17:57 Estimated GFR 55 (59-) L 07/29/25 17:57 Glucose 113 mg/dL (65-110) H 07/29/25 17:57 Troponin I 0.138 ng/mL (0.000-0.034) H* 07/29/25 21:26 Most Recent Suicide Severity Rating Suicide Severity Rating NO RISK INDICATED 07/29/25 18:25
[2025-07-29 22:09] VITALS: BMI 34.2
--- NOTE | 2025-07-29 22:37 | ADMGEN ---
This patient, Brody Briones, was admitted to IMU Room 207-01. Patient/family oriented to hospital policies and general routines including ID bracelet, bed and alarms, visiting hours, pain management, procedures, bathroom and other care routines, personal items, smoking policy, room service/diet, and visiting hours. Information on how to activate the Rapid Response Team has been discussed. Patient/Family are encouraged to report perceived risks to care and to ask questions if they do not understand what they are told or what they should do.
[2025-07-29 22:41] VITALS: BP 143/98; PULSE 77; RESP 18; TEMP 36.4; O2SAT 94
[2025-07-30] VITALS (30 sets, daily range): BP systolic 132–153; BP diastolic 74–110; PULSE 75–109; RESP 15–29; TEMP 36.5–37.2; O2SAT 91–97
--- NOTE | 2025-07-30 | ECHO_ITS ---
Patient Info Name: Brody Briones Age: 69 years : 1955 Gender: Male Ht: 68 in Wt: 225 lbs BSA: 2.25 m2 HR: 91 bpm BP: 135 / 74 mmHg Heart Rhythm: Sinus Rhythm Technical Quality: Fair Exam Date: 07/30/2025 2:37 PM Patient Status: I Admit Date: 07/30/2025 Exam Type: CA echo doppler color flow Complete two-dimensional, color flow and Doppler transthoracic echocardiogram is performed. Staff Referring Physician: Qasim Quintanilla Shoeshiner: Jared Penaloza III Attending Provider: Mikayla Linn DO Summary 1. Complete two-dimensional, color flow and Doppler transthoracic echocardiogram is performed. 2. Moderate left ventricular enlargement with severe systolic dysfunction ejection fraction 25%. 3. Akinesis of the posterior segment severe hypokinesis of the remaining segments. 4. Trivial aortic regurgitation. 5. Mild mitral regurgitation. Left Ventricle Left ventricular chamber dimension is moderately enlarged. Left ventricular systolic function is severely reduced, estimated at 20-25. The left ventricular diastolic function is grade I diastolic dysfunction. Right Ventricle Right ventricular chamber dimension is normal. Left Atria Left atrial chamber dimension is normal. Right Atria Right atrial chamber dimension is normal. Aortic Valve The aortic valve is trileaflet. There is mild aortic valve sclerosis. There is trace aortic valve regurgitation. Pulmonic Valve The pulmonic valve is not well visualized. Mitral Valve The mitral valve has normal leaflets. There is mild mitral valve regurgitation. Tricuspid Valve The tricuspid valve leaflets are normal. Pericardium/Pleural The pericardium appears normal. Aorta The aortic root size at the sinus of Valsalva is normal. Left Ventricular Outflow Tract Name Value Normal LVOT 2D LVOT Diameter 2.4 cm LVOT Doppler LVOT Peak Velocity 108 cm/s LVOT Peak Gradient 5 mmHg LVOT Mean Gradient 2 mmHg LVOT VTI 18 cm LVOT VTI/AV VTI Ratio 0.6 LVOT Stroke Volume 80 ml LVOT CO 6.7 l/min LVOT CI 3.0 l/min/m2 Pulmonic Valve Name Value Normal PV Doppler PV Peak Velocity 95 cm/s PV Peak Gradient 4 mmHg PV Mean Gradient 2 mmHg Mitral Valve Name Value Normal MV Doppler MV Peak Gradient 5 mmHg MV Mean Gradient 2 mmHg MV Area (Cont Eq VTI) 5.9 cm2 MV Diastolic Function MV E Peak Velocity 115 cm/s MV A Peak Velocity 1 cm/s MV E/A 229.9 MV Decel Time (PW) 76 ms MV Annular TDI MV E/e' (Septal) 33.8 MV E/e' (Lateral) 25.2 MV E/e' (Average) 29.5 Tricuspid Valve Name Value Normal TV Annular TDI TV Lateral Corrine s' Velocity 11.6 cm/s >=9.5 Aortic Valve Name Value Normal AV Doppler AV Peak Velocity 219 cm/s AV Peak Gradient 19 mmHg AV Mean Gradient 10 mmHg AV VTI 32 cm AV Area (Cont Eq VTI) 2.5 cm2 >=3.0 AV Area (Cont Eq Karan) 2.2 cm2 AV DI (Karan) 0.49 AV Regurgitation 2D LVOT Area 4.5 cm2 Ventricles Name Value Normal LV Dimensions 2D/MM IVS Diastolic Thickness (2D) 1.5 cm 0.6-1.0 LVID Diastole (2D) 6.5 cm 4.2-5.8 LVIW Diastolic Thickness (2D) 1.5 cm 0.6-1.0 LVID Systole (2D) 5.3 cm 2.5-4.0 LVOT Diameter 2.4 cm LV Mass (2D Cubed) 498.61 g 88.00-224.00 LV Mass Index (2D Cubed) 222 g/m2 49-115 Relative Wall Thickness (2D) 0.48 <=0.42 LV Fractional Shortening/Ejection Fraction 2D/MM LV Fractional Shortening (2D) 17 % 25-43 LV EF (2D Teichholz) 35 % LV Diastolic Volume (4C MOD) 217 ml LV EF (4C MOD) 25 % LV Diastolic Volume (2C MOD) 203 ml LV EF (2C MOD) 28 % LV Diastolic Volume (BP MOD) 208 ml 62-150 LV Diastolic Volume Index (BP MOD) 92 ml/m2 34-74 LV Systolic Volume (BP MOD) 154 ml 21-61 LV Systolic Volume Index (BP MOD) 68 ml/m2 11-31 LV EF (BP MOD) 26 % 52-72 LV Diastolic Length (4C) 9.5 cm LV Systolic Length (4C) 9.1 cm LV Stroke Volume (4C MOD) 55 ml Atria Name Value Normal LA Dimensions LA Volume (4C A-L) 101 ml LA Volume (BP A-L) 95 ml RA Dimensions RA Systolic Major [place] Length (4C) 5.5 cm 2.1-2.7 RA Area (4C) 18.7 cm2 <=18.0 Report Signatures
[2025-07-30 00:09] LABS: Troponin I 0.128 ng/mL (0.000-0.034)
--- NOTE | 2025-07-30 08:24 | P.CONCA_ITS ---
Assessment and Plan Assessment and plan (1) CHF (congestive heart failure): Code(s): I50.9 - Heart failure, unspecified Status: Acute Assessment and Plan: 69-year-old male with hypertension, ? COPD/ emphysema, heavy tobacco abuse. Patient with dyspnea on exertion for about 1 month, associated with subcostal chest discomfort. EKG shows sinus rhythm, LBBB unknown duration. MPI from yesterday reportedly showed large infarct with low LVEF. Troponins minimally elevated and essentially flat. - Patient has congestive heart failure, reduced ejection fraction based on MPI. Will do echocardiogram with Doppler to reassess LV/ RV function and rule out major structural heart disease. - Check NT proBNP. - Based on clinical presentation with dyspnea, subcostal chest discomfort, abnormal MPI with low LVEF -further ischemic evaluation is warranted. After discussing benefits, risks and alternatives with the patient, he is willing to proceed with cardiac catheterization to rule out significant obstructive CAD. Further recommendations will follow after cardiac catheterization complete. (2) Tobacco abuse: Code(s): Z72.0 - Tobacco use Status: Acute Assessment and Plan: patient was advised to quit tobacco. Consider PFT as an outpatient. History of Present Illness History of Present Illness Consult date/time: 07/30/25 08:24 Requesting physician: Dannie Quiñones MD Reason For Visit: chest pain,positive cardiac stress test,elevated Narrative: DATE OF CONSULT:07/30/2025 REASON FOR CONSULT: chest pain, elevated troponin REQUESTING PHYSICIAN:Dannie uQiñones MD CHIEF COMPLAINT: chest pain, shortness of breath HPI: 69-year-old male with hypertension, ? COPD/ emphysema, heavy tobacco abuse. Patient presented to the hospital after he had positive stress test. Patient States that he has been experiencing dyspnea on exertion for about 1 month and occasional subcostal chest discomfort. He had outpatient MPI done on 07/29/2025 which reportedly showed Large severe infarct involving a significant portion of the circumflex coronary artery vascular distribution as well as portions of the right coronary artery vascular distribution along the inferior wall; moderate left ventricular enlargement with moderately decreased ejection fraction measuring 26%. Patient was advised by his primary care physician to come to the hospital for further evaluation. patient denies prior cardiac history included clinical [place], angina, heart failure or any known arrhythmias. Currently, he gets short of breath with mild activity. He has occasional dizziness without syncope. EKG at presentation on my personal interpretation shows sinus rhythm, LBBB- unknown duration. Troponins are minimally elevated , essentially flat at 0.12, 0.13, 0.12. Patient is a heavy smoker, 1 pack per day for about 50 years. Occasional alcohol, no illicit drugs. Review of Systems 2 Review of Systems: General: Negative for fever, chills, fatigue Psychological: Negative for anxiety, depression Ophthalmic: negative for loss of vision ENT: Negative for epistaxis, headaches Allergy and immunology: Negative for hives, nasal congestion Hematologic and lymphatic: Negative for overt bleeding problems Endocrine: Negative for hot flashes, palpitations Respiratory: Negative for cough, hemoptysis Cardiovascular: Positive for subcostal chest discomfort, dyspnea on mild exertion, occasional dizziness without syncope Gastrointestinal: Negative for abdominal pain, nausea, vomiting, hematochezia Musculoskeletal: Negative for myalgia, joint pains Neurological: Negative for weakness Dermatological: Negative for rash, skin discoloration PMFSH Past Medical History Medical History Bronchitis Right sided sciatica Vitamin D deficiency Testicular hypofunction Other fatigue Male erectile dysfunction, unspecified Erectile dysfunction due to arterial insufficiency Anxiety disorder, unspecified Abnormal PSA Hypertension HLD (hyperlipidemia) Surgical History Surgical History History of appendectomy Family History Family History Mother Diabetes mellitus Heart disease History of heart artery stent Hypertension Cancer Father Heart disease Cancer Father Hx of CABG Other High cholesterol Social History Social History Smoking packs per day: 1 Smoking cigarettes per day: 20.0 Years smoked: 50 Smoking pack-years: 50.00 Smoking status: Current every day smoker Tobacco type: cigarettes Second hand tobacco smoke exposure: No Alcohol intake: never Alcohol use details: rarely Substance use: current Substance use type: does not use Lack of Transportation: No Lack of Food: Never True Current Housing: I Have Housing Concerned About Future Housing: No Difficulty Paying Gas/Electric Bills: No Difficulty Paying for Meds: No Currently Unemployed: No Education: High School Diploma/GED Difficulty w/ Childcare or Family Care: No Living arrangements: with family Gender identity (if verbalized by the patient): Male Spiritual care concerns: No Meds Home Medications and Allergies Home Medications ?Medication ?Instructions ?Recorded ?Confirmed ?Type blood pressure machine #1 ea 09/20/23 07/29/25 Rx temazepam 15 mg capsule 30 mg (2 x 15 mg) PO QHS PRN sleep 01/04/24 07/29/25 Rx #30 caps prazosin 1 mg capsule See Rx Instructions .Route 0 12/11/24 07/29/25 Rx .COMPLEX #180 caps amlodipine 5 mg tablet See Rx Instructions .Route 0 12/24/24 07/29/25 Rx .COMPLEX #90 tabs fenofibrate nanocrystallized 48 mg See Rx Instructions .Route 02/03/25 07/29/25 Rx tablet .COMPLEX #90 tabs losartan 100 mg tablet See Rx Instructions .Route 0 02/03/25 07/29/25 Rx .COMPLEX #90 tabs albuterol sulfate 90 mcg/actuation See Rx Instructions .Route 04/16/25 07/29/25 Rx aerosol inhaler .COMPLEX #25.5 grams fluticasone propionate 50 See Rx Instructions .Route 0 04/16/25 07/29/25 Rx mcg/actuation nasal .COMPLEX #48 grams spray,suspension Allergies Allergy/AdvReac Type Severity Reaction Status Date / Time No Known Allergies Allergy Verified 07/29/25 17:37 Vital Signs Vital Signs - 24 hr 07/29/25 17:35 07/29/25 22:04 07/29/25 22:41 Temperature 36.7 C 36.4 C Pulse Rate 98 76 77 Respiratory Rate 16 18 18 Blood Pressure 155/89 H 135/99 H 143/98 H Pulse Oximetry 95 99 94 Oxygen Delivery Room Air 07/30/25 00:00 07/30/25 00:00 07/30/25 02:00 Temperature 36.7 C Pulse Rate 85 91 92 Respiratory Rate 18 Blood Pressure 146/103 H Pulse Oximetry 93 Oxygen Delivery 07/30/25 04:00 07/30/25 04:00 07/30/25 06:00 Temperature 36.7 C Pulse Rate 88 81 91 Respiratory Rate 18 Blood Pressure 135/74 Pulse Oximetry 91 Oxygen Delivery Exam 2 Narrative: PHYSICAL EXAMINATION: GENERAL: Alert, oriented, no acute distress MENTAL STATUS: affect appropriate to mood EYES: Extraocular movements intact, no pallor EARS: External ears appear normal, hearing grossly normal NOSE: Normal and patent, no discharge MOUTH: Mucous membranes moist, tongue normal NECK: Supple, no JVD CHEST: coarse breath sounds HEART: Normal rate, regular rhythm, normal S1 and S2 ABDOMEN: Soft, nontender NEUROLOGICAL: Alert, oriented, normal speech, no gross motor deficits MUSCULOSKELETAL: No major deformity, no amputation EXTREMITIES: trace pedal edema, no clubbing, no cyanosis SKIN: no rash on the exposed area, no cyanosis PSYCHIATRIC: Normal mood, appropriate affect Results Labs and Meds 07/29/25 17:57 07/29/25 17:57 Lab results: Cardiac Enzymes 07/29/25 07/29/25 07/29/25 Range/Units 17:57 21:26 23:36 AST 38 (17-59) U/L Troponin I 0.120 H* 0.138 H* 0.128 H* (0.000-0.034) ng/mL Coagulation 07/29/25 Range/Units 17:57 PT 12.7 (11.1-14.7) Seconds APTT 28.2 (22.3-36.8) Seconds CBC 07/29/25 Range/Units 17:57 WBC 9.7 (4.5-10.0) K/mm3 RBC 5.30 (4.6-6.20) M/mm3 Hgb 16.2 (14.0-18.0) g/dL Hct 49.9 (42.0-52.0) % Plt Count 212 (150-375) k/mm3 Lymph # (Auto) 1.69 (0.9-3.2) K/mm3 [place] # (Auto) 0.8 H (0.1-0.6) K/mm3 Eos # (Auto) 0.1 (0-0.3) K/mm3 Baso # (Auto) 0.0 (0.0-0.1) K/mm3 Comprehensive Metabolic Panel 07/29/25 Range/Units 17:57 Sodium 140 (137-145) mmol/L Potassium 4.3 (3.4-5.0) mmol/L Chloride 107 (98-107) mmol/L Carbon Dioxide 27 (22-30) mmol/L BUN 32 H D (9-20) mg/dL Creatinine 1.29 (0.7-1.3) mg/dL Glucose 113 H (65-110) mg/dL Calcium 9.3 (8.4-10.2) mg/dL AST 38 (17-59) U/L ALT 36 (6-50) U/L Alkaline Phosphatase 78 (38-126) U/L Total Protein 7.6 (6.3-8.2) g/dL Albumin 4.4 (3.5-5.1) g/dL Intake and Output 07/29/25 07/30/25 07/30/25 23:59 07:59 15:59 Output Total 550 Balance -550 Output: Urine 550 Other: # Unmeasured Voids 1 Patient Weight 07/30/25 23:59 Weight 102.1 kg
[2025-07-30] MEDS: ASPIRIN 81 MG CHEWABLE TABLET PO (08:37)
--- NOTE | 2025-07-30 08:43 | P.SEDATION_ITS ---
Moderate Sedation Note-Pt Data Patient Data Allergies Allergy/AdvReac Type Severity Reaction Status Date / Time No Known Allergies Allergy Verified 07/29/25 17:37 Home Medications ?Medication ?Instructions ?Recorded ?Confirmed ?Type blood pressure machine #1 ea 09/20/23 07/29/25 Rx temazepam 15 mg capsule 30 mg (2 x 15 mg) PO QHS PRN sleep 01/04/24 07/29/25 Rx #30 caps prazosin 1 mg capsule See Rx Instructions .Route 0 12/11/24 07/29/25 Rx .COMPLEX #180 caps amlodipine 5 mg tablet See Rx Instructions .Route 0 12/24/24 07/29/25 Rx .COMPLEX #90 tabs fenofibrate nanocrystallized 48 mg See Rx Instructions .Route 02/03/25 07/29/25 Rx tablet .COMPLEX #90 tabs losartan 100 mg tablet See Rx Instructions .Route 0 02/03/25 07/29/25 Rx .COMPLEX #90 tabs albuterol sulfate 90 mcg/actuation See Rx Instructions .Route 04/16/25 07/29/25 Rx aerosol inhaler .COMPLEX #25.5 grams fluticasone propionate 50 See Rx Instructions .Route 0 04/16/25 07/29/25 Rx mcg/actuation nasal .COMPLEX #48 grams spray,suspension Current Medications: Active Medications Aspirin (Aspirin 81 Mg Chewable Tablet) 81 mg PO DAILY@0800 SIMÓN Last Admin: 07/30/25 08:37 Dose: 81 mg Morphine Sulfate (Morphine Sulfate (*Crx) 4 Mg/Ml Inj) 2 mg IV PUSH Q2H PRN PRN Reason: Pain Rated 7-10 Perflutren Lipid Microsphere (Perflutren Lipid Microspheres 1.5 Ml Vial Diluted To 10 Ml Total Volume) 0 ml IV PUSH ONCE PRN; Protocol PRN Reason: adequate visualization Stop: 08/02/25 08:30 Sedation/Anesthesia: No previous sedation/anesthesia problems (including family history). [facility] Past Medical History Medical History Bronchitis Right sided sciatica Vitamin D deficiency Testicular hypofunction Other fatigue Male erectile dysfunction, unspecified Erectile dysfunction due to arterial insufficiency Anxiety disorder, unspecified Abnormal PSA Hypertension HLD (hyperlipidemia) Surgical History Surgical History History of appendectomy Family History Family History Mother Diabetes mellitus Heart disease History of heart artery stent Hypertension Cancer Father Heart disease Cancer Father Hx of CABG Other High cholesterol Social History Social History Smoking packs per day: 1 Smoking cigarettes per day: 20.0 Years smoked: 50 Smoking pack-years: 50.00 Smoking status: Current every day smoker Tobacco type: cigarettes Second hand tobacco smoke exposure: No Alcohol intake: never Alcohol use details: rarely Substance use: current Substance use type: does not use Lack of Transportation: No Lack of Food: Never True Current Housing: I Have Housing Concerned About Future Housing: No Difficulty Paying Gas/Electric Bills: No Difficulty Paying for Meds: No Currently Unemployed: No Education: High School Diploma/GED Difficulty w/ Childcare or Family Care: No Living arrangements: with family Gender identity (if verbalized by the patient): Male Spiritual care concerns: No Mod Sed Physical Exam Physical Exam Pre Procedural Exam: Normal: Airway Hours since solid foods: 12 Hours since liquid intake: 12 Mallampati Classification: class II Internal Medicine - PN: Obj Da Vital Signs Vital Signs: Vital Signs - 24 hr 07/29/25 17:35 07/29/25 22:04 07/29/25 22:41 Temperature 36.7 C 36.4 C Pulse Rate 98 76 77 Respiratory Rate 16 18 18 Blood Pressure 155/89 H 135/99 H 143/98 H Pulse Oximetry 95 99 94 Oxygen Delivery Room Air 07/30/25 00:00 07/30/25 00:00 07/30/25 02:00 Temperature 36.7 C Pulse Rate 85 91 92 Respiratory Rate 18 Blood Pressure 146/103 H Pulse Oximetry 93 Oxygen Delivery 07/30/25 04:00 07/30/25 04:00 07/30/25 06:00 Temperature 36.7 C Pulse Rate 88 81 91 Respiratory Rate 18 Blood Pressure 135/74 Pulse Oximetry 91 Oxygen Delivery Intake/Output Intake/Output: Intake & Output 07/27/25 07/28/25 07/29/25 07/30/25 23:59 23:59 23:59 23:59 Output Total 550 Balance -550 Meds/Results Medications: Active Medications Generic Name Dose Route Start Last Admin Trade Name Freq PRN Reason Stop Dose Admin Aspirin 81 mg 07/30/25 08:00 07/30/25 08:37 Aspirin 81 Mg Chewable Tablet PO 81 mg DAILY@0800 SIMÓN Administration Morphine Sulfate 2 mg 07/29/25 21:15 Morphine Sulfate (*Crx) 4 Mg/Ml Inj IV PUSH Q2H PRN Pain Rated 7-10 Perflutren Lipid Microsphere 0 ml 07/30/25 08:30 Perflutren Lipid Microspheres 1.5 Ml Vial Diluted To 10 Ml Total Volume IV PUSH 08/02/25 08:30 ONCE PRN adequate visualization Protocol Radiology Results: ITS Impressions Chest X-Ray 07/29/25 18:03 Impression: 1: No acute cardiopulmonary disease. Labs 07/29/25 17:57 07/29/25 17:57 Labs: Laboratory Results - last 24 hr 07/29/25 07/29/25 07/29/25 17:57 21:26 23:36 WBC 9.7 RBC 5.30 Hgb 16.2 Hct 49.9 MCV 94.2 MCH 30.6 MCHC 32.5 RDW 13.5 Plt Count 212 MPV 11.3 H Immature Gran % (Auto) 0.2 Neut % (Auto) 72.8 Lymph % (Auto) 17.4 L [place] % (Auto) 8.1 Eos % (Auto) 1.1 Baso % (Auto) 0.4 Lymph # (Auto) 1.69 [place] # (Auto) 0.8 H Eos # (Auto) 0.1 Baso # (Auto) 0.0 Abs Immat Gran (auto) 0.02 Absolute Neuts (auto) 7.1 H Absolute Nucleated RBC 0.000 Nucleated RBC % 0.0 PT 12.7 INR 1.0 APTT 28.2 Sodium 140 Potassium 4.3 Chloride 107 Carbon Dioxide 27 Anion Gap 6 BUN 32 H D Creatinine 1.29 Estim Creat Clear Calc 56 Estimated GFR 55 L Glucose 113 H Calcium 9.3 Total Bilirubin 0.5 AST 38 ALT 36 Alkaline Phosphatase 78 Troponin I 0.120 H* 0.138 H* 0.128 H* Total Protein 7.6 Albumin 4.4 Lipase 71 ASA Classification/Sedation ASA Classification/Sedation ASA Class: IV Emergent: No Risks: Risks, benefits and alternatives explained and patient/family accepted plan for sedation. Patient re-evaluated immediately prior to sedation.
--- NOTE | 2025-07-30 09:01 | P.HP_ITS ---
H&P: HPI History of Present Illness Date/Time: 07/30/25 09:01 Chief Complaint: - abnormal stress test Narrative: Patient is a 69 yo male with PMH of HLD, HTN, CKD who presented to the ER with complaints of abnormal stress test. Patient was following with cardiology as an outpatient with complaints of dyspnea on exertion for about 1 month associated with substernal chest pain. Stress test 07/29 showed Large severe infarct involving a significant portion of the circumflex coronary artery vascular distribution as well as portions of the right coronary artery vascular distribution along the inferior wall. Moderate left ventricular enlargement with moderately decreased ejection fraction measuring 26%. Patient smokes 1 PPD. Denies fever, chills active chest pain, nausea, vomiting, lower extremity edema. In ED, BUN 32, Cr 1.29, trop I 0.120, 0.138, 0.128. CXR with no acute process. Cardio consulted and planning for [facility] today. Review of Systems Review of Systems: All systems reviewed & are unremarkable except as noted in HPI and below PMFSH Past Medical History Medical History Bronchitis Right sided sciatica Vitamin D deficiency Testicular hypofunction Other fatigue Male erectile dysfunction, unspecified Erectile dysfunction due to arterial insufficiency Anxiety disorder, unspecified Abnormal PSA Hypertension HLD (hyperlipidemia) Surgical History Surgical History History of appendectomy Family History Family History Mother Diabetes mellitus Heart disease History of heart artery stent Hypertension Cancer Father Heart disease Cancer Father Hx of CABG Other High cholesterol Social History Social History Smoking packs per day: 1 Smoking cigarettes per day: 20.0 Years smoked: 50 Smoking pack-years: 50.00 Smoking status: Current every day smoker Tobacco type: cigarettes Second hand tobacco smoke exposure: No Alcohol intake: never Alcohol use details: rarely Substance use: current Substance use type: does not use Lack of Transportation: No Lack of Food: Never True Current Housing: I Have Housing Concerned About Future Housing: No Difficulty Paying Gas/Electric Bills: No Difficulty Paying for Meds: No Currently Unemployed: No Education: High School Diploma/GED Difficulty w/ Childcare or Family Care: No Living arrangements: with family Gender identity (if verbalized by the patient): Male Spiritual care concerns: No Meds Home Medications and Allergies Home Medications ?Medication ?Instructions ?Recorded ?Confirmed ?Type blood pressure machine #1 ea 09/20/23 07/29/25 Rx temazepam 15 mg capsule 30 mg (2 x 15 mg) PO QHS PRN sleep 01/04/24 07/29/25 Rx #30 caps prazosin 1 mg capsule See Rx Instructions .Route 0 12/11/24 07/29/25 Rx .COMPLEX #180 caps amlodipine 5 mg tablet See Rx Instructions .Route 0 12/24/24 07/29/25 Rx .COMPLEX #90 tabs fenofibrate nanocrystallized 48 mg See Rx Instructions .Route 02/03/25 07/29/25 Rx tablet .COMPLEX #90 tabs losartan 100 mg tablet See Rx Instructions .Route 0 02/03/25 07/29/25 Rx .COMPLEX #90 tabs albuterol sulfate 90 mcg/actuation See Rx Instructions .Route 04/16/25 07/29/25 Rx aerosol inhaler .COMPLEX #25.5 grams fluticasone propionate 50 See Rx Instructions .Route 0 04/16/25 07/29/25 Rx mcg/actuation nasal .COMPLEX #48 grams spray,suspension Allergies Allergy/AdvReac Type Severity Reaction Status Date / Time No Known Allergies Allergy Verified 07/29/25 17:37 Vital Signs Vital Signs - 24 hr 07/29/25 17:35 07/29/25 22:04 07/29/25 22:41 Temperature 98.0 F 97.6 F Pulse Rate 98 76 77 Respiratory Rate 16 18 18 Blood Pressure 155/89 H 135/99 H 143/98 H Pulse Oximetry 95 99 94 Oxygen Delivery Room Air 07/30/25 00:00 07/30/25 00:00 07/30/25 02:00 Temperature 98.1 F Pulse Rate 85 91 92 Respiratory Rate 18 Blood Pressure 146/103 H Pulse Oximetry 93 Oxygen Delivery 07/30/25 04:00 07/30/25 04:00 07/30/25 06:00 Temperature 98.1 F Pulse Rate 88 81 91 Respiratory Rate 18 Blood Pressure 135/74 Pulse Oximetry 91 Oxygen Delivery 07/30/25 08:00 07/30/25 08:00 Temperature 97.7 F Pulse Rate 91 96 Respiratory Rate 18 24 H Blood Pressure 143/90 H Pulse Oximetry 91 93 Oxygen Delivery Room Air Exam Narrative: General: NAD Eyes: EOMI ENT: neck supple Cardiovascular: Regular rate and rhythm Respiratory: Clear to auscultation, respirations even and unlabored on RA Gastrointestinal: Soft, non tender Genitourinary: no suprapubic tenderness Musculoskeletal: No edema Skin: warm, dry Neuro: Alert. Psych: Mood appropriate Results Labs Labs: Short CBC 07/29/25 Range/Units 17:57 WBC 9.7 (4.5-10.0) K/mm3 Hgb 16.2 (14.0-18.0) g/dL Hct 49.9 (42.0-52.0) % Plt Count 212 (150-375) k/mm3 BMP 07/29/25 17:57 Sodium 140 Potassium 4.3 Chloride 107 Carbon Dioxide 27 BUN 32 H D Creatinine 1.29 Glucose 113 H Calcium 9.3 Cardiac Enzymes 07/29/25 07/29/25 07/29/25 Range/Units 17:57 21:26 23:36 Troponin I 0.120 H* 0.138 H* 0.128 H* (0.000-0.034) ng/mL Liver Function 07/29/25 Range/Units 17:57 Total Bilirubin 0.5 (0.2-1.3) mg/dL AST 38 (17-59) U/L ALT 36 (6-50) U/L Alkaline Phosphatase 78 (38-126) U/L Albumin 4.4 (3.5-5.1) g/dL Quality VTE Prophylaxis VTE prophylaxis: mechanical ordered Assessment and Plan Assessment and plan (1) Coronary artery disease: Code(s): I25.10 - Atherosclerotic heart disease of [place] coronary artery without angina pectoris Status: Acute Assessment and Plan: - Presented with abnormal stress test - S/p [facility] 07/30 which showed severe two-vessel CAD, chronic total occlusion of ostial RCA, high-grade complex stenosis of the mid left circumflex - Cardio following - continue aspirin, statin. Rechecking echocardiogram. Plan for viability study as outpatient to determine plan for stent versus CABG. - Monitor on telemetry - currently chest pain free (2) CHF (congestive heart failure): Code(s): I50.9 - Heart failure, unspecified Status: Acute Assessment and Plan: Ischemic cardiomyopathy -Stress MPI Moderate left ventricular enlargement with moderately decreased ejection fraction measuring 26%. - CXR with no acute process - appears euvolemc - echo pending - cardio started GDMT (3) Elevated troponin: Code(s): R79.89 - Other specified abnormal findings of blood chemistry Status: Acute Assessment and Plan: - troponin 0.120, 0.138, 0.128 - flatly elevated in setting of above - monitor on telemetry (4) Hypertension: Code(s): I10 - Essential (primary) hypertension Status: Acute Assessment and Plan: - BP 143/90 - cardio adjusted meds as above (5) History of tobacco abuse: Code(s): Z87.891 - Personal history of nicotine dependence Status: Acute Assessment and Plan: - strongly encouraged cessation (6) HLD (hyperlipidemia): Code(s): E78.5 - Hyperlipidemia, unspecified Status: Acute Assessment and Plan: - total cholesterol 241, LDL 160, HDL 47 - continue statin (7) Chronic kidney disease (CKD): Code(s): N18.9 - Chronic kidney disease, unspecified Status: Acute Assessment and Plan: - Cr 1.29, near baseline - avoid nephrotoxins Plan Code status: full code DVT prophylaxis: SCDs Dispo: home likely tomorrow Prior Studies I have reviewed the following patient records and this information was taken into consideration when formulating the assessment and plan.: previous [facility] Hospitalist [facility] Advance Care Plan I have confirmed that the patient's Advanced Care Plan is present, code status is documented, or surrogate decision maker is listed in patient medical record.: Yes Medication Reconciliation I have utilized all available resources to obtain, update and review the patients current medications (includes all prescriptions, OTC, herbals, cannabis, and nutritional supplements).: Yes The patient is not eligible for med reconciliation; the patient is in a emergent medical situation where delaying treatment would jeopardize the patients health.: No
[2025-07-30 09:42] LABS: Hematocrit 50.0 % (42.0-52.0); Hemoglobin 16.5 g/dL (14.0-18.0); Immature Granulocyte Percent A 0.3 % (0-0.5); Lymphocytes Absolute Auto 1.46 K/mm3 (0.9-3.2); Mean Corpuscular HGB Conc 33.0 g/dl (32-36); Mean Corpuscular Hemoglobin 30.6 pg (26-34); Mean Corpuscular Volume 92.8 fl (80-100); Nucleated Red Blood Cells Absolute Auto 0.000 K/mm3 (0.0-0.012); Nucleated Red Blood Cells Perc 0.0 % (0.0-0.2); Platelet Count Result 208 k/mm3 (150-375); Red Blood Count 5.39 M/mm3 (4.6-6.20); White Blood Count 9.4 K/mm3 (4.5-10.0)
[2025-07-30 09:50] LABS: NT Pro B Type Natriuretic Pept 1250 pg/mL (19.9-100)
[2025-07-30 09:51] LABS: Alanine Aminotransferase 38 U/L (6-50); Albumin Level 4.5 g/dL (3.5-5.1); Alkaline Phosphatase 87 U/L (38-126); Anion Gap 9 mmol/L (4-12); Aspartate Amino Transferase 37 U/L (17-59); Bilirubin,Total 0.7 mg/dL (0.2-1.3); Blood Urea Nitrogen 27 mg/dL (9-20); Calcium 9.3 mg/dL (8.4-10.2); Carbon Dioxide 24 mmol/L (22-30); Chloride 107 mmol/L (98-107); Cholesterol 241 mg/dL (0-200); Estimated CRCL calculation 55 ml/min; Estimated Glomerular Filt Rate 54; Glucose 104 mg/dL (65-110); HDL Direct 47 mg/dL; Potassium 4.4 mmol/L (3.4-5.0); Sodium 140 mmol/L (137-145); Total Protein 7.7 g/dL (6.3-8.2); Triglycerides 137 mg/dL (<150)
--- NOTE | 2025-07-30 09:52 | PC.NURSE ---
Pt to engineering lab technician via stretcher. called per patient request, no answer, message left by RN.
[2025-07-30 09:54] LABS: Hemoglobin A1C 5.8 % (<5.7)
--- NOTE | 2025-07-30 10:12 | P.PCNCC_ITS ---
Cardiac Cath Procedure Note Date of procedure:: 07/30/25 Performing physician:: Tom Henry MD Procedure Procedure performed:: CORONARY ANGIOGRAM REPORT DATE OF PROCEDURE: 07/30/2025 INDICATION FOR PROCEDURE: BRIEF CLINICAL HISTORY: 69-year-old male with hypertension, ?COPD/ emphysema, heavy tobacco abuse. Patient presented to the hospital after he had positive stress test. Patient stated that he has been experiencing dyspnea on exertion for about 1 month and occasional subcostal chest discomfort. He had outpatient MPI done on 07/29/2025 which reportedly showed Large severe infarct involving a significant portion of the circumflex coronary artery vascular distribution as well as portions of the right coronary artery vascular distribution along the inferior wall; moderate left ventricular enlargement with moderately decreased ejection fraction measuring 26%. Patient was advised by his primary care physician to come to the hospital for further evaluation. He denied prior cardiac history included clinical PA, angina, heart failure or any known arrhythmias. Currently, he gets short of breath with mild activity. He has occasional dizziness without syncope. EKG at presentation showed sinus rhythm, LBBB-unknown duration. Troponins minimally elevated , essentially flat at 0.12, 0.13, 0.12. Benefits and risks of the procedure were discussed with the patient in depth, and informed consent was obtained prior to the procedure. Risks of the procedure include but are not limited to vascular complications including groin hematoma, retroperitoneal bleed, vessel perforation; periprocedural PA, cardiac arrhythmias, stroke, contrast induced nephropathy, and . After discussing all the benefits, risks and alternatives, patient was willing to proceed with the procedure. PROCEDURES PERFORMED: 1. Selective left and right coronary angiogram 2. Ultrasound-guided right radial artery access 3. Moderate sedation-CPT code 81648 MODERATE SEDATION: Midazolam 1 mg; fentanyl 25 mcg; Start time 0945 , Stop time 1005 ; Total vrho-eh-togb time 20 minutes; Leann Guaman RN was trained observer for moderate sedation. ACCESS SITE: Right radial artery PROCEDURE NOTE: After obtaining informed consent, patient was brought to catheterization lab and prepped and draped in a usual sterile manner. After local anesthesia with lidocaine, right radial artery access was taken with micropuncture needle under ultrasound guidance followed by insertion of a 6 Setswana sheath. Selective left and right coronary angiogram was performed using 5 Setswana JL3.5 and JR4 catheters respectively. Orthogonal views were taken. Next, a 5 Setswana pigtail catheter was advanced in the aortic root. There was difficulty in advancing the pigtail catheter in the LV cavity. Therefore, LV pressure measurement and left ventriculogram could not be performed. Finally, a radial band was placed for local hemostasis. Patient tolerated procedure well without any immediate procedure related complications. FINDINGS: LEFT MAIN CORONARY: Large caliber vessel, minimal plaque in the mid segment. LEFT ANTERIOR DESCENDING ARTERY: Medium to large caliber vessel, tapers distally and reaches LV apex. There is mild diffuse, about 30-40% narrowing in the proximal-mid segment with mild diffuse calcification. Diagonal branches are smaller caliber vessels. LEFT CIRCUMFLEX ARTERY: Medium caliber vessel, gives rise to medium caliber OM1 and OM2 branches. OM1 branch has about 50-60% stenosis in the proximal segment. There is complex high-grade stenosis in the mid segment just distal to the origin of the OM branch with significant tortuosity. [id number]-om-[id number] collaterals are seen providing collaterals to the distal RCA branches. RIGHT CORONARY ARTERY: Chronic total occlusion at the ostium with faint filling of the distal vessel through the bridging collaterals. Left slight collaterals fill distal RCA, and RPDA/RPL branches. LEFT VENTRICULOGRAM: Not performed HEMODYNAMIC ASSESSMENT: Opening pressure 156/124 mmHg, closing pressure 161/136 mmHg. CONCLUSIONS: 1. Severe 2 vessel CAD- a) chronic total occlusion of ostial RCA with [id number] collaterals; b) high-grade, complex stenosis mid LCX 2. Systemic hypertension PLAN/RECOMMENDATIONS: Patient is severe 2 vessel CAD involving RCA and left circumflex artery. LV systolic dysfunction is noted on the MPI, in addition to the infarct in the RCA and LCX territories. Check echo with Doppler to reassess LV function and rule out any significant valvar heart disease. Guideline directed medical treatment for CAD including aspirin, high-dose statin; guideline directed medical treatment for CHFrEF. May consider outpatient viability testing before revascularization (PCI versus surgical). Complete smoking cessation. This document was completed by using [employer] speech recognition software, therefore, philosophy instructor variances may occur.
[2025-07-30] MEDS: SODIUM CHLORIDE 0.9% IV 1,000 ML 125 ML IV CONT (10:35)
[2025-07-30] MEDS: ATORVASTATIN 40 MG TABLET 80 MG PO (11:36)
[2025-07-30] MEDS: SPIRONOLACTONE 25 MG TABLET PO (11:37)
[2025-07-30] MEDS: EMPAGLIFLOZIN 10 MG TABLET PO (11:37)
[2025-07-30] MEDS: SACUBITRIL/VALSARTAN 24-26 MG TABLET 1 TAB PO ×2 (11:37→19:47)
--- NOTE | 2025-07-30 13:35 | PC.NURSE ---
Pt returned from equipment operator/laborer/supervisor via wheelchair. Report received from KARTHIKEYAN Noriega @ [phone]
[2025-07-30] MEDS: PRAZOSIN HCL 1 MG CAPSULE PO (19:47)
[2025-07-31] VITALS (10 sets, daily range): BP systolic 122–157; BP diastolic 72–91; PULSE 71–101; RESP 16–18; TEMP 36.4–36.8; O2SAT 94–95
[2025-07-31 04:20] LABS: Hematocrit 52.6 % (42.0-52.0); Hemoglobin 16.6 g/dL (14.0-18.0); Immature Granulocyte Percent A 0.4 % (0-0.5); Lymphocytes Absolute Auto 0.82 K/mm3 (0.9-3.2); Mean Corpuscular HGB Conc 31.6 g/dl (32-36); Mean Corpuscular Hemoglobin 30.0 pg (26-34); Mean Corpuscular Volume 94.9 fl (80-100); Nucleated Red Blood Cells Absolute Auto 0.000 K/mm3 (0.0-0.012); Nucleated Red Blood Cells Perc 0.0 % (0.0-0.2); Platelet Count Result 191 k/mm3 (150-375); Red Blood Count 5.54 M/mm3 (4.6-6.20); White Blood Count 11.2 K/mm3 (4.5-10.0)
[2025-07-31 05:14] LABS: Alanine Aminotransferase 35 U/L (6-50); Albumin Level 4.4 g/dL (3.5-5.1); Alkaline Phosphatase 83 U/L (38-126); Anion Gap 9 mmol/L (4-12); Aspartate Amino Transferase 36 U/L (17-59); Bilirubin,Total 1.0 mg/dL (0.2-1.3); Blood Urea Nitrogen 24 mg/dL (9-20); Calcium 8.9 mg/dL (8.4-10.2); Carbon Dioxide 27 mmol/L (22-30); Chloride 102 mmol/L (98-107); Estimated CRCL calculation 52 ml/min; Estimated Glomerular Filt Rate 52; Glucose 117 mg/dL (65-110); Potassium 4.3 mmol/L (3.4-5.0); Sodium 138 mmol/L (137-145); Total Protein 7.3 g/dL (6.3-8.2)
[2025-07-31] MEDS: SACUBITRIL/VALSARTAN 24-26 MG TABLET 1 TAB PO (08:31)
[2025-07-31] MEDS: ASPIRIN 81 MG CHEWABLE TABLET PO (08:31)
[2025-07-31] MEDS: SPIRONOLACTONE 25 MG TABLET PO (08:31)
[2025-07-31] MEDS: EMPAGLIFLOZIN 10 MG TABLET PO (08:31)
[2025-07-31] MEDS: PRAZOSIN HCL 1 MG CAPSULE PO (08:31)
[2025-07-31] MEDS: ATORVASTATIN 40 MG TABLET 80 MG PO (08:31)
--- NOTE | 2025-07-31 09:16 | P.PNCA_ITS ---
Progress Note: A&P Assessment and Plan (1) Ischemic cardiomyopathy: Code(s): I25.5 - Ischemic cardiomyopathy Status: Acute Plan 69-year-old man seen yesterday in consultation and underwent left heart catheterization demonstrating severe two-vessel coronary artery disease with poor left ventricular systolic function. For this he has been started on appropriate guideline directed medical therapy. He is stable enough for dis charge today. He will follow-up with my partner, Dr. Henry where viability testing will need to be performed to determine optimal revascularization strategy. Explained to the patient that given his low ejection fraction and longstanding smoking certainly with significant COPD findings on physical exam do not expect to have resolution of his symptoms of dyspnea. He needs to restrict himself to light, sedentary activity until further notice. I will have the office reach out to him for timely/appropriate follow-up after the holiday Raul Pruett MD [facility] Subjective Date/time seen: Date of service: 07/31/25 09:16 Interval history: Follow-up visit in this 69-year-old man with: Severe two-vessel coronary artery disease with severe ischemic cardiomyopathy. Patient has a longstanding history of cigarette smoking and recent symptoms of worsening HAUSER with anginal-type chest pain. He was directed to the emergency room by his PCP after a stress test was done as an outpatient. Left heart catheterization done yesterday demonstrates chronic total occlusion of the RCA which does receive some collateral filling as well as high-grade stenosis of the mid circumflex which is a complex tortuous region of stenosis. Patient is stable this morning no new symptoms or complaints long conversation with him about the findings of his left heart catheterization. He has been started on appropriate guideline directed medical therapy Exam Const: General: comfortable and no acute distress Other: Overweight gentleman no distress HENMT: Mouth: Yes moist mucous membranes Eyes: Sclera: sclerae normal Neck: Neck: supple and no JVD Resp: Effort & Inspection: normal respiratory effort Other: Breath sounds are diffusely diminished in both lung mendiola with prolonged expiratory face, no pulmonary rales are audible Cardio: Rate: regular rate Rhythm: regular rhythm Other: PMI not palpable no discernible murmur GI: GI Palp: Yes Soft to palpation Auscultation: normal bowel sounds Skin: General skin exam: normal color Neuro: Other: Alert and oriented x3 Extrem: General: normal to inspection Objective Data Vital Signs Vital Signs: Vital Signs - 24 hr 07/30/25 10:30 07/30/25 10:45 07/30/25 11:00 Temperature Pulse Rate 93 97 94 Respiratory Rate 20 18 20 Blood Pressure 149/90 H 135/99 H 139/110 H Pulse Oximetry 91 91 93 Oxygen Delivery Room Air Room Air Room Air 07/30/25 11:15 07/30/25 11:30 07/30/25 11:37 Temperature Pulse Rate 88 106 H 106 H Respiratory Rate 20 20 Blood Pressure 136/99 H 132/92 H Pulse Oximetry 91 94 Oxygen Delivery Room Air Room Air 07/30/25 11:45 07/30/25 12:00 07/30/25 12:15 Temperature Pulse Rate 93 89 96 Respiratory Rate 20 22 H 20 Blood Pressure 142/98 H 140/92 H 147/92 H Pulse Oximetry 95 92 93 Oxygen Delivery Room Air Room Air Room Air 07/30/25 12:30 07/30/25 12:45 07/30/25 13:00 Temperature Pulse Rate 94 108 H 75 Respiratory Rate 29 H 19 20 Blood Pressure 153/103 H 149/108 H 136/100 H Pulse Oximetry 94 96 97 Oxygen Delivery Room Air Room Air Room Air 07/30/25 13:15 07/30/25 13:39 07/30/25 13:45 Temperature 36.6 C Pulse Rate 80 88 Respiratory Rate 18 28 H Blood Pressure 137/98 H 137/78 Pulse Oximetry 96 93 Oxygen Delivery Room Air Room Air 07/30/25 13:45 07/30/25 14:00 07/30/25 14:15 Temperature 37.2 C Pulse Rate 80 100 82 Respiratory Rate 16 Blood Pressure 132/91 H Pulse Oximetry 94 Oxygen Delivery 07/30/25 15:00 07/30/25 15:15 07/30/25 16:00 Temperature 36.5 C 36.6 C Pulse Rate 80 89 89 Respiratory Rate 20 28 H 28 H Blood Pressure 143/89 H 141/97 H Pulse Oximetry 92 93 93 Oxygen Delivery Room Air 07/30/25 16:00 07/30/25 17:15 07/30/25 17:51 Temperature 36.9 C Pulse Rate 90 86 103 H Respiratory Rate 16 Blood Pressure 141/82 H Pulse Oximetry 94 Oxygen Delivery 07/30/25 19:47 07/30/25 19:50 07/30/25 19:59 Temperature 36.7 C Pulse Rate 83 86 Respiratory Rate 15 Blood Pressure 144/75 H Pulse Oximetry 95 Oxygen Delivery Room Air 07/30/25 20:00 07/30/25 22:00 07/30/25 23:48 Temperature Pulse Rate 89 77 Respiratory Rate Blood Pressure Pulse Oximetry Oxygen Delivery Room Air 07/31/25 00:00 07/31/25 00:12 07/31/25 02:00 Temperature 36.6 C Pulse Rate 71 89 78 Respiratory Rate 16 Blood Pressure 122/72 Pulse Oximetry 94 Oxygen Delivery 07/31/25 04:00 07/31/25 04:00 07/31/25 04:31 Temperature 36.8 C Pulse Rate 90 94 Respiratory Rate 16 Blood Pressure 157/91 H Pulse Oximetry 95 Oxygen Delivery Room Air 07/31/25 05:49 07/31/25 08:00 07/31/25 08:31 Temperature 36.4 C Pulse Rate 89 87 88 Respiratory Rate 18 Blood Pressure 145/84 H Pulse Oximetry 94 Oxygen Delivery Intake/Output Intake/Output: Intake & Output 07/28/25 07/29/25 07/30/25 07/31/25 23:59 23:59 23:59 23:59 Intake Total 490 560 Output Total 1150 Balance -660 560 Meds/Results Medications: Active Medications Generic Name Dose Route Start Last Admin Trade Name Freq PRN Reason Stop Dose Admin Albuterol 2 puff 07/30/25 14:12 Albuterol Sulfate (*Sp) Aerosol 1 Puff INHALATION Q6HRT PRN Shortness Of Breath Aspirin 81 mg 07/30/25 08:00 07/31/25 08:31 Aspirin 81 Mg Chewable Tablet PO 81 mg DAILY@0800 SIMÓN Administration Atorvastatin Calcium 80 mg 07/30/25 10:35 07/31/25 08:31 Atorvastatin 40 Mg Tablet PO 80 mg DAILY SIMÓN Administration Benzocaine 1 lozenge 07/30/25 15:37 Benzocaine/Menthol (*Bkc) 18 Ea Lozenge PO Q2H PRN Cough Carvedilol 6.25 mg 07/31/25 21:00 Carvedilol 6.25 Mg Tablet PO Q12HR SIMÓN Empagliflozin 10 mg 07/30/25 10:30 07/31/25 08:31 Empagliflozin 10 Mg Tablet PO 10 mg DAILY SIMÓN Administration Morphine Sulfate 2 mg 07/29/25 21:15 Morphine Sulfate (*Crx) 4 Mg/Ml Inj IV PUSH Q2H PRN Pain Rated 7-10 Perflutren Lipid Microsphere 0 ml 07/30/25 08:30 Perflutren Lipid Microspheres 1.5 Ml Vial Diluted To 10 Ml Total Volume IV PUSH 08/02/25 08:30 ONCE PRN adequate visualization Protocol Prazosin HCl 1 mg 07/30/25 21:00 07/31/25 08:31 Prazosin Hcl 1 Mg Capsule PO 1 mg Q12HR SIMÓN Administration Sacubitril/Valsartan 1 tab 07/30/25 10:30 07/31/25 08:31 Sacubitril/Valsartan 24-26 Mg Tablet PO 1 tab Q12HR SIMÓN Administration Spironolactone 25 mg 07/30/25 10:30 07/31/25 08:31 Spironolactone 25 Mg Tablet PO 25 mg QAM SIMÓN Administration Radiology Results: ITS Impressions Chest X-Ray 07/29/25 18:03 Impression: 1: No acute cardiopulmonary disease. Labs Labs: Laboratory Results - last 24 hr 07/30/25 07/31/25 09:12 04:08 WBC 9.4 11.2 H RBC 5.39 5.54 Hgb 16.5 16.6 Hct 50.0 52.6 H MCV 92.8 94.9 MCH 30.6 30.0 MCHC 33.0 31.6 L RDW 13.4 13.3 Plt Count 208 191 MPV 11.6 H 11.0 H Immature Gran % (Auto) 0.3 0.4 Neut % (Auto) 74.8 H 84.9 H Lymph % (Auto) 15.6 L 7.3 L [place] % (Auto) 7.9 6.3 Eos % (Auto) 1.0 0.7 Baso % (Auto) 0.4 0.4 Lymph # (Auto) 1.46 0.82 L [place] # (Auto) 0.7 H 0.7 H Eos # (Auto) 0.1 0.1 Baso # (Auto) 0.0 0.0 Abs Immat Gran (auto) 0.03 0.05 H Absolute Neuts (auto) 7.0 H 9.5 H Absolute Nucleated RBC 0.000 0.000 Nucleated RBC % 0.0 0.0 Sodium 140 138 Potassium 4.4 4.3 Chloride 107 102 Carbon Dioxide 24 27 Anion Gap 9 9 BUN 27 H 24 H Creatinine 1.32 H 1.35 H Estim Creat Clear Calc 55 52 Estimated GFR 54 L 52 L Glucose 104 117 H Hemoglobin A1c 5.8 H Calcium 9.3 8.9 Total Bilirubin 0.7 1.0 AST 37 36 ALT 38 35 Alkaline Phosphatase 87 83 NT-Pro-B Natriuret Pep 1250 H Total Protein 7.7 7.3 Albumin 4.5 4.4 Triglycerides 137 Cholesterol 241 H LDL Cholesterol Direct 160 HDL Direct 47
--- NOTE | 2025-07-31 11:04 | P.DS_ITS ---
DS: Admitting Diagnosis Discharge Date 07/31/25 Admitting Diagnosis abnormal stress test DS: Discharge Diagnosis Discharge Diagnosis (1) Coronary artery disease: Code(s): I25.10 - Atherosclerotic heart disease of [place] coronary artery without angina pectoris Status: Acute (2) CHF (congestive heart failure): Code(s): I50.9 - Heart failure, unspecified Status: Acute (3) Elevated troponin: Code(s): R79.89 - Other specified abnormal findings of blood chemistry Status: Acute (4) Hypertension: Code(s): I10 - Essential (primary) hypertension Status: Acute (5) History of tobacco abuse: Code(s): Z87.891 - Personal history of nicotine dependence Status: Acute (6) HLD (hyperlipidemia): Code(s): E78.5 - Hyperlipidemia, unspecified Status: Acute (7) Chronic kidney disease (CKD): Code(s): N18.9 - Chronic kidney disease, unspecified Status: Acute DS: Summary Hospital Course Reason for hospitalization: abnormal stress test Hospital Course: The patient is a 69-year-old male with a history of hypertension, hyperlipidemia, chronic kidney disease, and long-standing tobacco use who presented to the emergency department after being notified of an abnormal outpatient chemical stress test performed for progressive dyspnea on exertion and intermittent substernal chest discomfort over approximately one month. Initial evaluation demonstrated minimally but persistently elevated troponins with a flat trend, nonacute chest X-ray, and EKG notable for left bundle branch block of unclear chronicity. Cardiology was consulted, and the patient was admitted for further ischemic evaluation and monitoring. He underwent left heart catheterization on 07/30/25 via right radial approach, which revealed severe two-vessel coronary artery disease, including chronic total occlusion of the ostial right coronary artery with [id number] collateralization and a high-grade, complex stenosis of the mid left circumflex artery. No procedural complications occurred. A transthoracic echocardiogram demonstrated moderate left ventricular enlargement with severe systolic dysfunction and an ejection fraction of approximately 25%, with akinesis of the posterior segment and severe hypokinesis of the remaining segments, as well as trivial aortic regurgitation and mild mitral regurgitation. The patient was diagnosed with ischemic cardiomyopathy and started on guideline- directed medical therapy, including aspirin, high-intensity statin, beta- laura, sacubitril/valsartan, spironolactone, and empagliflozin. Ant ihypertensive therapy was adjusted accordingly. He remained hemodynamically stable throughout hospitalization, chest pain free, and euvolemic, with stable renal function near baseline. Smoking cessation was strongly emphasized. Given clinical stability, he was deemed appropriate for discharge with plans for close outpatient cardiology follow-up, including viability testing to guide revascularization strategy (PCI versus CABG). He was instructed to restrict activity to light, sedentary exertion until further notice and to follow up promptly with cardiology, with the office arranging the appointment. Patient was also instructed to follow up with PCP regarding pulmonary function testing given patient's long standing smoking history and possible COPD. He was discharged home in stable condition. Time Spent with Patient Time attestation: Total time spent providing and/or coordinating discharge services: Time spent: Greater than 30 minutes Exam Narrative: General: NAD Eyes: EOMI ENT: neck supple Cardiovascular: Regular rate and rhythm. R radial access site soft without hematoma Respiratory: Clear to auscultation, respirations even and unlabored on RA Gastrointestinal: Soft, non tender Genitourinary: no suprapubic tenderness Musculoskeletal: No edema Skin: warm, dry Neuro: Alert. Psych: Mood appropriate DS: Data Data Completed and Pending Completed studies during hospitalization: ITS Impressions Chest X-Ray 07/29/25 18:03 Impression: 1: No acute cardiopulmonary disease. Labs on day of discharge: Labs from last 24 hours 07/31/25 04:08 WBC 11.2 H RBC 5.54 Hgb 16.6 Hct 52.6 H MCV 94.9 MCH 30.0 MCHC 31.6 L RDW 13.3 Plt Count 191 MPV 11.0 H Immature Gran % (Auto) 0.4 Neut % (Auto) 84.9 H Lymph % (Auto) 7.3 L Boundary % (Auto) 6.3 Eos % (Auto) 0.7 Baso % (Auto) 0.4 Lymph # (Auto) 0.82 L Bound[place] # (Auto) 0.7 H Eos # (Auto) 0.1 Baso # (Auto) 0.0 Abs Immat Gran (auto) 0.05 H Absolute Neuts (auto) 9.5 H Absolute Nucleated RBC 0.000 Nucleated RBC % 0.0 Sodium 138 Potassium 4.3 Chloride 102 Carbon Dioxide 27 Anion Gap 9 BUN 24 H Creatinine 1.35 H Estim Creat Clear Calc 52 Estimated GFR 52 L Glucose 117 H Calcium 8.9 Total Bilirubin 1.0 AST 36 ALT 35 Alkaline Phosphatase 83 Total Protein 7.3 Albumin 4.4 Discharge Plan Discharge Attending physician on discharge: Isa Willams Consulting providers: Brook Ruiz; Tom Henry Discharging Clinician: Brook Ruiz Anticipated Discharge Date/Time: 07/31/25 10:46 Patient Disposition: Home Activity: may shower and other - see discharge instructions Diet: regular Discharge Instructions: Discharge Instructions ? Cardiac Catheterization / Heart Failure & CAD Reason for Admission?You were admitted after an abnormal stress test. Cardiac catheterization showed?severe two vessel coronary artery disease: * Chronic total occlusion of the ostial RCA with left?to?right collaterals * High-grade, complex stenosis of the mid LCX Your echocardiogram showed a?newly reduced ejection fraction (EF) of 25%, consistent with systolic heart failure. Medication Changes Stopped:?losartan, amlodipine New/Continued Medications * Entresto (sacubitril/valsartan):?Improves heart function and reduces heart failure hospitalizations and mortality. Common side effects:?low blood pressure, dizziness, kidney function changes, increased potassium. * Aspirin:?Prevents blood clots and reduces risk of heart attack. Side effects:?stomach upset, bleeding, bruising. * Atorvastatin:?Lowers cholesterol and stabilizes plaque in the arteries. Side effects:?muscle aches, rare liver enzyme elevation. * Coreg (carvedilol):?Slows heart rate, lowers blood pressure, and helps the heart pump more effectively over time. Side effects:?fatigue, dizziness, low heart rate. * Aldactone (spironolactone):?Helps remove excess fluid and improves survival in heart failure. Side effects:?increased potassium, breast tenderness, dizziness. Take all medications exactly as prescribed. Do not stop any medication unless instructed. * Jardiance (empagliflozin):?Helps improve heart failure outcomes by reducing fluid overload and decreasing the risk of hospitalization and cardiovascular , even if you do not have diabetes. Common side effects:?increased urination, dehydration, dizziness, urinary tract or genital yeast infections. Important precautions:?stay hydrated within your fluid restriction, maintain good genital hygiene, and report symptoms of infection, severe weakness, nausea/vomiting, abdominal pain, or confusion. Hold this medication and seek medical advice if you have poor oral intake, severe illness, or are hospitalized for infection or surgery. Diet Instructions * Sodium restriction:?Limit to?<= grams (2,000 mg) per day. Avoid processed, canned, and fast foods. * Fluid restriction:?Limit total fluids to?2 liters (64 oz) per day, including water, coffee, tea, soup, and ice. * Weigh yourself daily at the same time. Call cardiology if you gain?>2 lb in 1 day or >5 lb in 1 week. Activity * Light, sedentary activity only?until cleared by cardiology. * No strenuous activity, heavy lifting, or exercise. * Rest as needed and stop activity if you develop chest pain, shortness of breath, dizziness, or palpitations. Heart Catheterization Aftercare * Keep the wrist clean and dry for 24 hours. * No lifting >5 lb or repetitive wrist motion with the affected arm for?5?7 days. * Mild soreness or bruising is normal. * Seek care urgently?for increasing pain, swelling, numbness, bleeding that does not stop with pressure, or color change in the hand. Smoking * Stop smoking completely.?Smoking significantly worsens coronary artery disease and heart failure. * Pulmonary function tests (PFTs) should be ordered by your?primary care provider. Follow?Up * Cardiology follow?up MARELY?to determine next steps for management of your coronary artery disease and heart failure. The cardiology office?will call you?to schedule this appointment. * Follow up with your PCP for smoking cessation support and PFTs. When to Seek Immediate Care * Chest pain or pressure not relieved by rest * Worsening shortness of breath * Fainting or severe dizziness * Rapid weight gain, severe swelling, or new confusion Please bring this instruction sheet and your medication list to all follow-up appointments. Patient Instructions: Antibiotic Form, Spironolactone (By mouth), Prazosin (By mouth), Aspirin (By mouth), Atorvastatin (By mouth), Carvedilol (By mouth), Empagliflozin (By mouth), Sacubitril/Valsartan (By mouth), Heart Failure (DC), A cute Coronary Syndrome (DC) Patient Language: Ivorian Stand Alone Forms: General Discharge Information Follow-up/Referrals: Tom Henry MD [Physician, Cardiology] Referral Note: the office should call you for an appointment, but please call if you don't hear from them by Monday. Call for concerns regarding heart cath. Raul Lira MD [Primary Care Provider, Internal Medicine] - Call for Appointment Referral Note: hospital follow-up, discuss testing for COPD Discharge Medications: New aspirin [Children's Aspirin] 81 mg Tablet,Chewable 81 mg PO DAILY@0800 Qty: 30 0RF atorvastatin 40 mg Tablet 80 mg PO DAILY 30 Days Qty: 60 0RF carvedilol [Coreg] 6.25 mg Tablet 6.25 mg PO Q12HR 60 Days Qty: 120 0RF spironolactone 25 mg Tablet 25 mg PO QAM 30 Days Qty: 30 0RF Jardiance 10 mg Tablet 10 mg PO DAILY 30 Days Qty: 30 0RF sacubitril-valsartan [Entresto] 24-26 mg Tablet 1 tablet PO Q12HR 60 Days Qty: 120 0RF Continued (DME) blood pressure machine See Rx Instructions .Route .MEDSUPPLY Qty: 1 0RF Rx Instructions: As directed prazosin 1 mg capsule See Rx Instructions .ROUTE .COMPLEX Qty: 180 2RF Dose Instruction: TAKE 1 CAPSULE BY MOUTH TWICE DAILY Rx Instructions: TAKE 1 CAPSULE BY MOUTH TWICE DAILY fenofibrate nanocrystallized 48 mg tablet See Rx Instructions .ROUTE .COMPLEX Qty: 90 2RF Dose Instruction: TAKE 1 TABLET BY MOUTH DAILY Rx Instructions: TAKE 1 TABLET BY MOUTH DAILY fluticasone propionate 50 mcg/actuation spray,suspension See Rx Instructions .ROUTE .COMPLEX Qty: 48 2RF Dose Instruction: SHAKE LIQUID AND USE 1 SPRAY IN EACH NOSTRIL TWICE DAILY Rx Instructions: SHAKE LIQUID AND USE 1 SPRAY IN EACH NOSTRIL TWICE DAILY albuterol sulfate 90 mcg/actuation HFA aerosol inhaler See Rx Instructions .ROUTE .COMPLEX Qty: 25.5 2RF Dose Instruction: INHALE 1 PUFF BY MOUTH EVERY 4 HOURS NEEDED FOR SHORTNESS OF BREATH OR WHEEZING Rx Instructions: INHALE 1 PUFF BY MOUTH EVERY 4 HOURS NEEDED FOR SHORTNESS OF BREATH OR WHEEZING Discontinued temazepam 15 mg capsule 30 mg PO QHS PRN (Reason: sleep) Qty: 30 2RF amlodipine 5 mg tablet See Rx Instructions .ROUTE .COMPLEX Qty: 90 2RF Dose Instruction: TAKE 1 TABLET(5 MG) BY MOUTH EVERY DAY Rx Instructions: TAKE 1 TABLET(5 MG) BY MOUTH EVERY DAY losartan 100 mg tablet See Rx Instructions .ROUTE .COMPLEX Qty: 90 2RF Dose Instruction: TAKE 1 TABLET BY MOUTH DAILY Rx Instructions: TAKE 1 TABLET BY MOUTH DAILY Date of admission: 07/30/25 16:56 Primary Care Provider: Raul Lira Admitting Provider: Mikayla Linn Attending physician on admission: Mikayla Linn Condition: Stable Hospitalist MIPS Heart Failure (Exclusion) Patient has history of Heart Transplant or Left Ventricular Assistive Device?: No IF YES, STOP HERE Heart Failure (Qualifier) Patient has current or prior documentation of LVEF less than or equal to 40%, or mod/servere depressed LVSF?: Yes IF NO, STOP HERE If Yes, Heart Failure (Qualifier) Patient was prescribed or already taking an Angiotensin-Converting Enzyme (TAYLOR) Inhibitor, or Antiotensin Receptor Laura (ARB): Yes Patient was prescribed or already taking bisoprolol, carvedilol, or sustained release metoprolol succinate: Yes
== END 2025-07-31 11:48 | disposition home or self-care (01) | DRG 287 ==
LOC: ANHED 19:28 → ANHIMU 07-30 07:02
PROVIDERS: Emergency Medicine; Internal Medicine Cardiovascular Disease; Physician Assistant; Admitting Provider Internal Medicine; Emergency Provider Emergency Medicine; PCP Emergency Medicine; Visit Provider Internal Medicine
PROC: 4A023N7 Measurement of Cardiac Sampling and Pressure, Left Heart, Percutaneous Approach (ICD-10-PCS; CPT 93454; principal; 2025-07-30 09:15)
DX: I25.10 Atherosclerotic heart disease of native coronary artery without angina pectoris (principal); I13.0 Hypertensive heart and chronic kidney disease with heart failure and stage 1 through stage 4 chronic kidney disease, or unspecified chronic kidney disease; I25.82 Chronic total occlusion of coronary artery; I25.5 Ischemic cardiomyopathy; E78.5 Hyperlipidemia, unspecified; N18.9 Chronic kidney disease, unspecified; I50.9 Heart failure, unspecified; R79.89 Other specified abnormal findings of blood chemistry; F41.9 Anxiety disorder, unspecified; F17.210 Nicotine dependence, cigarettes, uncomplicated; Z90.49 Acquired absence of other specified parts of digestive tract
CPT/HCPCS: 36415; 71046; 78452; 80053; 80061; 83036; 83690; 83880; 84484; 85025; 85610; 85730; 93005; 93017; 93306; 93454; 99285; A9270; A9502; C1769; C1887; C1894; G0378; J1644; J2003; J2250; J2305; J2785; J3010; J7030; J7040